=== PATIENT | male | born 1960 ===

== ENCOUNTER 2017-09-13 06:33 | Inpatient (IN) | payer OTHER ==
[2017-09-13] MEDS ORDERED: Sodium Chloride 0.9% 1,000 ML IV ONE ×2 (07:26→09:14)
--- NOTE | 2017-09-13 07:39 | C.PDOC ---
History Of Present Illness 56 y/o male with history of pancreatitis presents to ED with complaints of upper abdominal pain which radiates into chest and back with associated vomiting for 3 days. Patient also has history of drinking alcohol and admits to binge drinking for 3 days and states his last drink was 4 days ago. He also reports dark stools. Patient denies fever, chills, blood in stool, blood in vomitus. Time Seen by Provider: 09/13/17 07:20 Chief Complaint (Nursing): Abdominal Pain History Per: Patient History/Exam Limitations: no limitations Onset/Duration Of Symptoms: Days Current Symptoms Are (Timing): Still Present Location Of Pain/Discomfort: Epigastric Associated Symptoms: Back Pain Past Medical History Reviewed: Historical Data, Nursing Documentation, Vital Signs Vital Signs: Last Vital Signs Temp 98.5 F 09/13/17 09:52 Pulse 87 09/13/17 09:52 Resp 18 09/13/17 09:52 BP 188/82 H 09/13/17 09:52 Pulse Ox 98 09/13/17 10:07 - Medical History PMH: Anxiety Surgical History: No Surg Hx Family History: States: No Known Family Hx - Social History Hx Alcohol Use: Yes Hx Substance Use: No Review Of Systems Constitutional: Negative for: Fever, Chills Respiratory: Negative for: Shortness of Breath Gastrointestinal: Positive for: Abdominal Pain. Negative for: Nausea, Vomiting , Diarrhea, Hematochezia Skin: Negative for: Rash Physical Exam - Physical Exam Appears: Non-toxic, No Acute Distress Skin: Warm, Dry, No Diaphoretic, No Rash Head: Atraumatic, Normacephalic Eye(s): bilateral: Normal Inspection, PERRL, EOMI Nose: Normal Oral Mucosa: Moist Neck: Normal ROM, Supple Cardiovascular: Rhythm Regular, No Murmur Respiratory: Normal Breath Sounds, No Rales, No Rhonchi, No Wheezing Gastrointestinal/Abdominal: Bowel Sounds, Soft, Tenderness (Epigastric), No Mass , Distention (Mildly), No Guarding, No Rebound, No Hernia, No Ascites Back: No CVA Tenderness, No Vertebral Tenderness Extremity: Normal ROM, No Tenderness, Capillary Refill (<2 seconds), No Deformity Neurological/Psych: Oriented x3, Normal Speech Gait: Steady ED Course And Treatment - Laboratory Results Result Diagrams: 09/13/17 07:39 09/13/17 07:39 Lab Interpretation: Abnormal ECG: Interpreted By Me, Viewed By Me ECG Rhythm: Sinus Rhythm ECG Interpretation: No Acute Changes Rate From EC (prolonged QT) O2 Sat by Pulse Oximetry: 98 (RA) Pulse Ox Interpretation: Normal - CT Scan/US CT scan abd/pelvis Other Rad Studies (CT/US): Read By Radiologist, Radiology Report Reviewed CT/US Interpretation: PROCEDURE: CT Abdomen and Pelvis without intravenous contrast. HISTORY: upper abd pain h.o panc. COMPARISON: None. TECHNIQUE: Without contrast.. Contrast Dose: 0. Radiation dose: Total exam DLP = 275.21 mGy-cm. This CT exam was performed using one or more of the following dose reduction techniques: Automated exposure control, adjustment of the mA and/or kV according to patient size, and/or use of iterative reconstruction technique. FINDINGS: LOWER THORAX: Unremarkable. LIVER: Diffusely diminished attenuation consistent with fatty infiltration. Smooth contour. No mass. Normal size. GALLBLADDER AND BILE DUCTS: Unremarkable. PANCREAS: No focal pancreatic mass. Few coarse calcifications. Peripancreatic inflammation/edema consistent with acute pancreatitis. No cielo fluid collection. This is seen about the entire pancreas. SPLEEN: Minimal splenomegaly. The spleen measures 13.1 cm in greatest dimension. No mass. ADRENALS: Unremarkable. No mass. KIDNEYS AND URETERS: Unremarkable. No hydronephrosis. No solid mass. VASCULATURE: Unremarkable. No aortic aneurysm. BOWEL: Diverticulosis of the cecum and ascending colon without evidence of diverticulitis. No other abnormal bowel loops. No bowel obstruction. APPENDIX: Not identified. No secondary findings. PERITONEUM: Unremarkable. No free fluid. No free air. LYMPH NODES: Unremarkable. No enlarged lymph nodes. BLADDER: Suboptimally distended. REPRODUCTIVE: Unremarkable. BONES: No acute fracture. OTHER FINDINGS: None. IMPRESSION: Findings consistent with acute uncomplicated pancreatitis. Few coarse pancreatic calcifications suggestive of chronic pancreatitis. Fatty infiltration of the liver. Minimal splenomegaly. Medical Decision Making Medical Decision Making: Impression: Upper abdominal pain likely pancreatitis Plan: * CT abd/pelvis * Blood work * UA * Zofran Progress: Labs reviewed no leukocytosis. Lab calls back with critical value 10 of Bicarb. Other labs show elevated amylase and lipase >4000. Case discussed with ER attending Dr Holley who recommends ICU consult [address] Vo who will come to evaluate patient and recommends starting 1/2NS 75 meq bicarb 0840 Page hospitalist for admission 0910 ICU accepts Disposition - Disposition Disposition: HOSPITALIZED Disposition Time: 09:10 Condition: STABLE - POA Present On Arrival: None - Clinical Impression Clinical Impression: Pancreatitis - PA / EVENT REPRESENTATIVE / Resident Statement MD/DO has reviewed & agrees with the documentation as recorded. - Scribe Statement The provider has reviewed the documentation as recorded by the Scribe Tess Lora All medical record entries made by the Scribe were at my direction and personally dictated by me. I have reviewed the chart and agree that the record accurately reflects my personal performance of the history, physical exam, medical decision making, and the department course for this patient. I have also personally directed, reviewed, and agree with the discharge instructions and disposition. Decision To Admit - Pt Status Changed To: Hospital Disposition Of: Inpatient - Admit Certification Admit to Inpatient:: After my assessment, the patient will require hospitalization for at least two midnights. This is because of the severity of symptoms shown, intensity of services needed, and/or the medical risk in this patient being treated as an outpatient. - InPatient: Physician Admission Certification:: patient with acute pancreatitis and needs admission and ICU - . Bed Request Type: ICU Admitting Physician: Camila Denney Patient Diagnosis: Pancreatitis
[2017-09-13] MEDS ORDERED: Sodium Chloride 0.9% 1,000 ML ONE (07:43)
[2017-09-13 07:44] LABS: BASO % 0.1 % (0.0-2.0); EOS % 0.5 % (0.0-4.0); HEMOGLOBIN 14.6 g/dL (12.0-18.0); LYMPH # 0.6 K/uL (1.0-4.3); LYMPH % 9.9 % (20.0-40.0); MEAN CELL VOLUME 88.7 fL (80.0-94.0); MEAN CORPUSCULAR HGB CONC 33.8 g/dL (33.0-37.0); MEAN PLATELET VOLUME 8.7 fL (7.2-11.7); MONO # 0.5 K/uL (0.0-0.8); MONO % 9.5 % (0.0-10.0); NEUT # 4.6 K/uL (1.8-7.0); NRBC % 0.1 % (0.0-2.0); PLATELET COUNT 152 K/uL (130-400); RBC 4.85 Mil/uL (4.40-5.90); RED CELL DISTRIBUTION WIDTH 18.4 % (11.5-14.5); WHITE BLOOD COUNT 5.8 K/uL (4.8-10.8)
[2017-09-13 08:06] LABS: LYMPHOCYTE 8 % (20-40); MONOCYTE 7 % (0-10); NEUTROPHIL 85 % (50-75); PLATELET ESTIMATE NORMAL (NORMAL); TOTAL CELLS COUNTED 100
[2017-09-13 08:09] LABS: SQUAMOUS EPITHIAL 1 /hpf (0-5); URINE BACTERIA OCC (<OCC); URINE BILIRUBIN 1+ (NEGATIVE); URINE BLOOD 2+ (NEGATIVE); URINE CLARITY Hazy (Clear); URINE COLOR Amber (YELLOW); URINE GLUCOSE (UA) NORMAL (Normal); URINE LEUKOCYTE ESTERASE NEG Leu/uL (Negative); URINE PROTEIN 3+ mg/dL (NEGATIVE)
[2017-09-13] MEDS ORDERED: Morphine 4 MG/ML VIAL ONE (08:10)
[2017-09-13 08:12] LABS: BARBITURATES, UR NEGATIVE (NEGATIVE); BENZODIAZEPINES, UR NEGATIVE (NEGATIVE); OPIATES, UR NEGATIVE (NEGATIVE); PHENCYCLIDINE, UR NEGATIVE (NEGATIVE); URINE WHITE BLOOD CELL CAST 7 /lpf (0-1)
[2017-09-13 08:29] LABS: ALB/GLOB RATIO 1.1 (1.0-2.1); ALBUMIN 5.3 g/dL (3.5-5.0); ALT/SGPT 108 U/L (21-72); AMYLASE 393 U/L (30-110); AST/SGOT 109 U/L (17-59); BLOOD UREA NITROGEN 22 mg/dL (9-20); GFR AFRICAN-AMERICAN > 60; GFR NON-AFRICAN AMERICAN > 60; LIPASE 4574 U/L (23-300)
--- NOTE | 2017-09-13 09:10 | CT ---
PROCEDURE: CT Abdomen and Pelvis without intravenous contrast HISTORY: upper abd pain h.o panc COMPARISON: None. TECHNIQUE: Without contrast.. Contrast Dose: 0 Radiation dose: Total exam DLP = 275.21 mGy-cm This CT exam was performed using one or more of the following dose reduction techniques: Automated exposure control, adjustment of the mA and/or kV according to patient size, and/or use of iterative reconstruction technique. FINDINGS: LOWER THORAX: Unremarkable. LIVER: Diffusely diminished attenuation consistent with fatty infiltration. Smooth contour. No mass. Normal size. GALLBLADDER AND BILE DUCTS: Unremarkable. PANCREAS: No focal pancreatic mass. Few coarse calcifications. Peripancreatic inflammation/edema consistent with acute pancreatitis. No cielo fluid collection. This is seen about the entire pancreas. SPLEEN: Minimal splenomegaly. The spleen measures 13.1 cm in greatest dimension. No mass. ADRENALS: Unremarkable. No mass. KIDNEYS AND URETERS: Unremarkable. No hydronephrosis. No solid mass. VASCULATURE: Unremarkable. No aortic aneurysm. BOWEL: Diverticulosis of the cecum and ascending colon without evidence of diverticulitis. No other abnormal bowel loops. No bowel obstruction. APPENDIX: Not identified. No secondary findings. PERITONEUM: Unremarkable. No free fluid. No free air. LYMPH NODES: Unremarkable. No enlarged lymph nodes. BLADDER: Suboptimally distended. REPRODUCTIVE: Unremarkable. BONES: No acute fracture. OTHER FINDINGS: None. IMPRESSION: Findings consistent with acute uncomplicated pancreatitis. Few coarse pancreatic calcifications suggestive of chronic pancreatitis. Fatty infiltration of the liver. Minimal splenomegaly.
[2017-09-13 09:23] LABS: VENOUS BLOOD GAS BASE EXCESS -11.3 mmol/L (0.0-2.0); VENOUS BLOOD GAS PCO2 37 mmHg (40-60); VENOUS BLOOD GAS PO2 39 mm/Hg (30-55); VENOUS BLOOD PH 7.23 (7.32-7.43)
[2017-09-13 09:30] LABS: PROTHROMBIN TIME 10.8 SECONDS (9.7-12.2)
[2017-09-13 10:12] LABS: ARTERIAL BLOOD GAS HCO3 13.4 mmol/L (21-28); ARTERIAL BLOOD GAS HEMOGLOBIN 10.3 g/dL (11.7-17.4); ARTERIAL BLOOD GAS O2 SAT 99.3 % (95-98); ARTERIAL BLOOD GAS PCO2 26 mm/Hg (35-45); ARTERIAL BLOOD GAS PH 7.24 (7.35-7.45); ARTERIAL BLOOD GAS PO2 102 mm/Hg (80-100); ARTERIAL BLOOD GAS TCO2 11.9 mmol/L (22-28)
--- NOTE | 2017-09-13 10:25 | CP.PCM.CON ---
"<Eldon Grissom - Last Filed: 09/13/17 13:15> History of Present Illness - History of Present Illness History of Present Illness: This Patient is a 56 year old male with a PMHx of alcoholic pancreatitis, EtOh Abuse/Withdrawal and delerium tremens w/ audio hallucinatoins who presents with complaints of abdominal pain and associated nausea and vomiting x 3 days. Patient rates the abdominal pain a 10/10, describes it as sharp and states that it radiates to his mid back. Patient states he was drinking a bottle of vodka daily for 4 days and stopped 3 days ago. He has not had anything to eat for 7 days. He denies using any modalities to treat his pain. ROS POSITIVES: Abdominal Pain, back pain, Tremor, Generalized Weakness, Melena, nausea, non-bloody/non-bilious vomiting. NEGATIVES: Fever, chills, chest pain, SOB, urinary symptoms, diarrhea, constipation, Depression, Anxiety, Suicidal/Homicidal Ideation, Audio/visual/ tactile hallucinations. PMHx: As stated above PSHx: Denies Allergies: Denies Social Hx: EtOH ABuse, Denies tobacco and illicit drug use. Unemployed and lives in [place]. Hos: was hospitilized in [facility] for EtOH withdrawal and delerium tremens FamHx: Non-Contributory Meds: Reviewed Review of Systems - Review of Systems All systems: reviewed and no additional remarkable complaints except (As per HPI ) Review of Systems: As per HPI Past Patient History - Past Social History Smoking Status: Never Smoked - PSYCHIATRIC Hx Anxiety: Yes Hx Substance Use: No - SURGICAL HISTORY Hx Surgeries: No Meds Allergies/Adverse Reactions: Allergies Allergy/AdvReac Type Severity Reaction Status Date / Time No Known Allergies Allergy Verified 09/13/17 06:36 - Medications Medications: Current Medications Sodium Bicarbonate 75 meq/ (Sodium Chloride) 1,075 mls @ 200 mls/hr IV .[id number] [facility] Last Admin: 09/13/17 09:17 Dose: 200 mls/hr Physical Exam - Additional Findings Additional findings: - Constitutional Appears: Non-toxic, Unkempt - Head Exam Head Exam: ATRAUMATIC, NORMAL INSPECTION, NORMOCEPHALIC - Eye Exam Eye Exam: EOMI, PERRL - ENT Exam ENT Exam: Mucous Membranes Dry - Neck Exam Neck exam: Positive for: Normal Inspection. Negative for: Lymphadenopathy - Respiratory Exam Respiratory Exam: Clear to Auscultation Bilateral, NORMAL BREATHING PATTERN. absent: Accessory Muscle Use - Cardiovascular Exam Cardiovascular Exam: Tachycardia, REGULAR RHYTHM, +S1, +S2. absent: JVD - GI/Abdominal Exam GI & Abdominal Exam: Normal Bowel Sounds, Tenderness (Epigastric, RUQ, LUQ ). absent: Distended, Firm, Guarding, Organomegaly - Extremities Exam Extremities exam: Positive for: normal inspection. Negative for: pedal edema - Neurological Exam Neurological exam: Alert, Oriented x3 - Psychiatric Exam Psychiatric exam: Normal Affect, Normal Mood - Skin Skin Exam: Dry, Intact, Normal Color, Warm Results - Vital Signs Recent Vital Signs: Last Vital Signs Temp 98.5 F 09/13/17 09:52 Pulse 87 09/13/17 09:52 Resp 18 09/13/17 09:52 BP 188/82 H 09/13/17 09:52 Pulse Ox 98 09/13/17 10:07 - Labs Result Diagrams: 09/13/17 07:39 09/13/17 07:39 Labs: Laboratory Results - last 24 hr 09/13/17 09/13/17 09/13/17 07:39 07:39 07:39 WBC 5.8 RBC 4.85 Hgb 14.6 Hct 43.0 MCV 88.7 MCH 30.0 MCHC 33.8 RDW 18.4 H Plt Count 152 MPV 8.7 Neut % (Auto) 80.0 H Lymph % (Auto) 9.9 L [place] % (Auto) 9.5 Eos % (Auto) 0.5 Baso % (Auto) 0.1 Neut # (Auto) 4.6 Lymph # (Auto) 0.6 L [place] # (Auto) 0.5 Eos # (Auto) 0.0 Baso # (Auto) 0.0 Neutrophils % (Manual) 85 H Lymphocytes % (Manual) 8 L Monocytes % (Manual) 7 Platelet Estimate Normal PT INR APTT Puncture Site pCO2 pO2 HCO3 ABG pH ABG Total CO2 ABG O2 Saturation ABG Base Excess ABG Hemoglobin ABG Carboxyhemoglobin POC ABG HHb (Measured) ABG Methemoglobin Ravin Test VBG pH VBG pCO2 VBG HCO3 VBG Total CO2 VBG O2 Sat (Calc) VBG Base Excess VBG Potassium A-a O2 Difference Respiratory Index Hgb O2 Saturation Glucose Lactate FiO2 Sodium 139 Potassium 4.7 Chloride 98 Carbon Dioxide 10 L* Anion Gap 36 H BUN 22 H Creatinine 1.2 Est GFR ( Amer) > 60 Est GFR (Non-Af Amer) > 60 Random Glucose 114 H Calcium 10.0 Magnesium Total Bilirubin 1.6 H AST 109 H ALT 108 H Alkaline Phosphatase 105 Lactate Dehydrogenase Total Protein 10.0 H Albumin 5.3 H Globulin 4.6 H Albumin/Globulin Ratio 1.1 Amylase 393 H Lipase 4574 H Venous Blood Potassium Urine Color Sayda Urine Clarity Hazy Urine pH 5.0 Ur Specific [place] 1.027 Urine Protein 3+ H Urine Glucose (UA) Normal Urine Ketones 2+ H Urine Blood 2+ H Urine Nitrate Negative Urine Bilirubin 1+ H Urine Urobilinogen 4.0 Ur Leukocyte Esterase Neg Urine WBC (Auto) 20 H Urine RBC (Auto) 31 H Ur Squamous Epith Cells 1 Urine Bacteria Occ H Hyaline Casts 11-20 H WBC Casts 7 Urine Opiates Screen Urine Methadone Screen Ur Barbiturates Screen Ur Phencyclidine Scrn Ur Amphetamines Screen U Benzodiazepines Scrn U Oth Cocaine Metabols U Cannabinoids Screen Alcohol, Quantitative < 10 09/13/17 09/13/17 09/13/17 07:39 09:11 09:18 WBC RBC Hgb Hct MCV MCH MCHC RDW Plt Count MPV Neut % (Auto) Lymph % (Auto) [place] % (Auto) Eos % (Auto) Baso % (Auto) Neut # (Auto) Lymph # (Auto) [place] # (Auto) Eos # (Auto) Baso # (Auto) Neutrophils % (Manual) Lymphocytes % (Manual) Monocytes % (Manual) Platelet Estimate PT 10.8 INR 1.0 APTT 24 Puncture Site pCO2 pO2 39 HCO3 ABG pH ABG Total CO2 ABG O2 Saturation ABG Base Excess ABG Hemoglobin ABG Carboxyhemoglobin POC ABG HHb (Measured) ABG Methemoglobin Ravin Test VBG pH 7.23 L VBG pCO2 37 L VBG HCO3 15.1 VBG Total CO2 16.6 L VBG O2 Sat (Calc) 72.7 H VBG Base Excess -11.3 L VBG Potassium 4.3 A-a O2 Difference Respiratory Index Hgb O2 Saturation Glucose 99 Lactate 0.9 FiO2 Sodium 135.0 Potassium Chloride 100.0 Carbon Dioxide Anion Gap BUN Creatinine Est GFR ( Amer) Est GFR (Non-Af Amer) Random Glucose Calcium Magnesium Total Bilirubin AST ALT Alkaline Phosphatase Lactate Dehydrogenase Total Protein Albumin Globulin Albumin/Globulin Ratio Amylase Lipase Venous Blood Potassium 4.3 Urine Color Urine Clarity Urine pH Ur Specific [place] Urine Protein Urine Glucose (UA) Urine Ketones Urine Blood Urine Nitrate Urine Bilirubin Urine Urobilinogen Ur Leukocyte Esterase Urine WBC (Auto) Urine RBC (Auto) Ur Squamous Epith Cells Urine Bacteria Hyaline Casts WBC Casts Urine Opiates Screen Negative Urine Methadone Screen Negative Ur Barbiturates Screen Negative Ur Phencyclidine Scrn Negative Ur Amphetamines Screen Negative U Benzodiazepines Scrn Negative U Oth Cocaine Metabols Negative U Cannabinoids Screen Negative Alcohol, Quantitative 09/13/17 09/13/17 09:27 10:05 WBC RBC Hgb Hct MCV MCH MCHC RDW Plt Count MPV Neut % (Auto) Lymph % (Auto) [place] % (Auto) Eos % (Auto) Baso % (Auto) Neut # (Auto) Lymph # (Auto) [place] # (Auto) Eos # (Auto) Baso # (Auto) Neutrophils % (Manual) Lymphocytes % (Manual) Monocytes % (Manual) Platelet Estimate PT INR APTT Puncture Site Lb pCO2 26 L pO2 102 H HCO3 13.4 L ABG pH 7.24 L ABG Total CO2 11.9 L ABG O2 Saturation 99.3 H ABG Base Excess -14.8 L ABG Hemoglobin 10.3 L ABG Carboxyhemoglobin 2.1 H POC ABG HHb (Measured) 0.7 ABG Methemoglobin 1.8 Ravin Test Na VBG pH VBG pCO2 VBG HCO3 VBG Total CO2 VBG O2 Sat (Calc) VBG Base Excess VBG Potassium A-a O2 Difference 15.0 Respiratory Index 0.1 Hgb O2 Saturation 95.4 Glucose Lactate FiO2 21.0 Sodium Potassium Chloride Carbon Dioxide Anion Gap BUN Creatinine Est GFR ( Amer) Est GFR (Non-Af Amer) Random Glucose Calcium Magnesium 1.7 Total Bilirubin AST ALT Alkaline Phosphatase Lactate Dehydrogenase 505 Total Protein Albumin Globulin Albumin/Globulin Ratio Amylase Lipase Venous Blood Potassium Urine Color Urine Clarity Urine pH Ur Specific [place] Urine Protein Urine Glucose (UA) Urine Ketones Urine Blood Urine Nitrate Urine Bilirubin Urine Urobilinogen Ur Leukocyte Esterase Urine WBC (Auto) Urine RBC (Auto) Ur Squamous Epith Cells Urine Bacteria Hyaline Casts WBC Casts Urine Opiates Screen Urine Methadone Screen Ur Barbiturates Screen Ur Phencyclidine Scrn Ur Amphetamines Screen U Benzodiazepines Scrn U Oth Cocaine Metabols U Cannabinoids Screen Alcohol, Quantitative Assessment & Plan - Assessment and Plan (Free Text) Assessment: 56 year old male with a PMHx of alcoholic pancreatitis, EtOh Abuse/Withdrawal and delerium tremens w/ audio hallucinations admitted for evaluation and treatment of EtOH Withdrawal, Alcoholic KetoAcidosis, and pancratitis. Plan: Neuro: GCS: 15 Sedation: None A: EtoH Withdrawal CIWA, Neurochecks, Seizure precautions, Fall Precautions Zofran PRN Folic Acid, Thiamine, MultiVitamins IV Daily Ativan 1 Q4H DENIS | Ativan 2 Q6H PRN PT Cardio: A: Elevated BP EKG: NSR w/ prolonged QT. No ST or T wave changes PRN Hydralazine GI: A: Pancreatitis, Elevated LFT's 2/2 EtoH ABuse, Elevated Billirubin 1/2 NS with Sodium Bicarb (75 MeQ) @ 200mls/hr NPO Hepatitis [employer] LFT's Morphine Q4 PRN Pulm: A: No Active Issues Nephro/Electrolytes A: Alcoholic Ketoacidosis 1/2 NS with Sodium Bicarb (75 MeQ) @ 200mls/hr Heme/Onc: No Active Issues at this time Endo: No Active Issues at this time ID Afebrile no Leukocytosis Proph IV protonix SCDs NPO Patient seen and discussed with Attending Eldon Grissom, PGY-1 <Bry Vo - Last Filed: 09/13/17 17:30> Meds - Medications Medications: Current Medications Acetaminophen (Tylenol 325mg Tab) 650 mg PO Q6 PRN PRN Reason: Fever >100.4 F Clonidine HCl (Catapres) 0.2 mg PO BID [facility] Last Admin: 09/13/17 14:58 Dose: 0.2 mg Hydralazine HCl (Apresoline) 10 mg IVP Q6H PRN PRN Reason: SBP > 180 or DBP > 100 Last Admin: 09/13/17 13:42 Dose: 10 mg Sodium Bicarbonate 75 meq/ (Sodium Chloride) 1,075 mls @ 200 mls/hr IV .[id number] [facility] Last Admin: 09/13/17 14:41 Dose: 200 mls/hr Folic Acid 1 mg/ Sodium (Chloride) 100.2 mls @ 60 mls/hr IV DAILY [facility] Last Admin: 09/13/17 13:29 Dose: 60 mls/hr Lorazepam (Ativan) 2 mg IVP Q6H PRN PRN Reason: Agitation Lorazepam (Ativan) 1 mg IVP Q4H [facility] Last Admin: 09/13/17 13:11 Dose: 1 mg Morphine Sulfate (Morphine) 4 mg IVP Q4 PRN PRN Reason: Pain, moderate (4-7) Last Admin: 09/13/17 12:17 Dose: 4 mg Ondansetron HCl (Zofran Inj) 4 mg IVP Q4H PRN PRN Reason: Nausea/Vomiting Pantoprazole Sodium (Protonix Inj) 40 mg IVP DAILY [facility] Thiamine HCl (Vitamin B1 Inj) 100 mg IV DAILY [facility] Last Admin: 09/13/17 13:31 Dose: 100 mg Results - Vital Signs Recent Vital Signs: Last Vital Signs Temp 98.5 F 09/13/17 09:52 Pulse 88 09/13/17 15:00 Resp 18 09/13/17 15:00 BP 178/95 H 09/13/17 15:00 Pulse Ox 100 09/13/17 15:00 - Labs Result Diagrams: 09/13/17 07:39 09/13/17 07:39 Labs: Laboratory Results - last 24 hr 09/13/17 09/13/17 09/13/17 07:39 07:39 07:39 WBC 5.8 RBC 4.85 Hgb 14.6 Hct 43.0 MCV 88.7 MCH 30.0 MCHC 33.8 RDW 18.4 H Plt Count 152 MPV 8.7 Neut % (Auto) 80.0 H Lymph % (Auto) 9.9 L [place] % (Auto) 9.5 Eos % (Auto) 0.5 Baso % (Auto) 0.1 Neut # (Auto) 4.6 Lymph # (Auto) 0.6 L [place] # (Auto) 0.5 Eos # (Auto) 0.0 Baso # (Auto) 0.0 Neutrophils % (Manual) 85 H Lymphocytes % (Manual) 8 L Monocytes % (Manual) 7 Platelet Estimate Normal PT INR APTT Puncture Site pCO2 pO2 HCO3 ABG pH ABG Total CO2 ABG O2 Saturation ABG Base Excess ABG Hemoglobin ABG Carboxyhemoglobin POC ABG HHb (Measured) ABG Methemoglobin Ravin Test VBG pH VBG pCO2 VBG HCO3 VBG Total CO2 VBG O2 Sat (Calc) VBG Base Excess VBG Potassium A-a O2 Difference Respiratory Index Hgb O2 Saturation Glucose Lactate FiO2 Sodium 139 Potassium 4.7 Chloride 98 Carbon Dioxide 10 L* Anion Gap 36 H BUN 22 H Creatinine 1.2 Est GFR ( Amer) > 60 Est GFR (Non-Af Amer) > 60 Random Glucose 114 H Calcium 10.0 Magnesium Total Bilirubin 1.6 H AST 109 H ALT 108 H Alkaline Phosphatase 105 Lactate Dehydrogenase Total Protein 10.0 H Albumin 5.3 H Globulin 4.6 H Albumin/Globulin Ratio 1.1 Amylase 393 H Lipase 4574 H Venous Blood Potassium Urine Color Sayda Urine Clarity Hazy Urine pH 5.0 Ur Specific [place] 1.027 Urine Protein 3+ H Urine Glucose (UA) Normal Urine Ketones 2+ H Urine Blood 2+ H Urine Nitrate Negative Urine Bilirubin 1+ H Urine Urobilinogen 4.0 Ur Leukocyte Esterase Neg Urine WBC (Auto) 20 H Urine RBC (Auto) 31 H Ur Squamous Epith Cells 1 Urine Bacteria Occ H Hyaline Casts 11-20 H WBC Casts 7 Urine Opiates Screen Urine Methadone Screen Ur Barbiturates Screen Ur Phencyclidine Scrn Ur Amphetamines Screen U Benzodiazepines Scrn U Oth Cocaine Metabols U Cannabinoids Screen Alcohol, Quantitative < 10 09/13/17 09/13/17 09/13/17 07:39 09:11 09:18 WBC RBC Hgb Hct MCV MCH MCHC RDW Plt Count MPV Neut % (Auto) Lymph % (Auto) [place] % (Auto) Eos % (Auto) Baso % (Auto) Neut # (Auto) Lymph # (Auto) [place] # (Auto) Eos # (Auto) Baso # (Auto) Neutrophils % (Manual) Lymphocytes % (Manual) Monocytes % (Manual) Platelet Estimate PT 10.8 INR 1.0 APTT 24 Puncture Site pCO2 pO2 39 HCO3 ABG pH ABG Total CO2 ABG O2 Saturation ABG Base Excess ABG Hemoglobin ABG Carboxyhemoglobin POC ABG HHb (Measured) ABG Methemoglobin Ravin Test VBG pH 7.23 L VBG pCO2 37 L VBG HCO3 15.1 VBG Total CO2 16.6 L VBG O2 Sat (Calc) 72.7 H VBG Base Excess -11.3 L VBG Potassium 4.3 A-a O2 Difference Respiratory Index Hgb O2 Saturation Glucose 99 Lactate 0.9 FiO2 Sodium 135.0 Potassium Chloride 100.0 Carbon Dioxide Anion Gap BUN Creatinine Est GFR ( Amer) Est GFR (Non-Af Amer) Random Glucose Calcium Magnesium Total Bilirubin AST ALT Alkaline Phosphatase Lactate Dehydrogenase Total Protein Albumin Globulin Albumin/Globulin Ratio Amylase Lipase Venous Blood Potassium 4.3 Urine Color Urine Clarity Urine pH Ur Specific [place] Urine Protein Urine Glucose (UA) Urine Ketones Urine Blood Urine Nitrate Urine Bilirubin Urine Urobilinogen Ur Leukocyte Esterase Urine WBC (Auto) Urine RBC (Auto) Ur Squamous Epith Cells Urine Bacteria Hyaline Casts WBC Casts Urine Opiates Screen Negative Urine Methadone Screen Negative Ur Barbiturates Screen Negative Ur Phencyclidine Scrn Negative Ur Amphetamines Screen Negative U Benzodiazepines Scrn Negative U Oth Cocaine Metabols Negative U Cannabinoids Screen Negative Alcohol, Quantitative 09/13/17 09/13/17 09:27 10:05 WBC RBC Hgb Hct MCV MCH MCHC RDW Plt Count MPV Neut % (Auto) Lymph % (Auto) [place] % (Auto) Eos % (Auto) Baso % (Auto) Neut # (Auto) Lymph # (Auto) [place] # (Auto) Eos # (Auto) Baso # (Auto) Neutrophils % (Manual) Lymphocytes % (Manual) Monocytes % (Manual) Platelet Estimate PT INR APTT Puncture Site Lb pCO2 26 L pO2 102 H HCO3 13.4 L ABG pH 7.24 L ABG Total CO2 11.9 L ABG O2 Saturation 99.3 H ABG Base Excess -14.8 L ABG Hemoglobin 10.3 L ABG Carboxyhemoglobin 2.1 H POC ABG HHb (Measured) 0.7 ABG Methemoglobin 1.8 Ravin Test Na VBG pH VBG pCO2 VBG HCO3 VBG Total CO2 VBG O2 Sat (Calc) VBG Base Excess VBG Potassium A-a O2 Difference 15.0 Respiratory Index 0.1 Hgb O2 Saturation 95.4 Glucose Lactate FiO2 21.0 Sodium Potassium Chloride Carbon Dioxide Anion Gap BUN Creatinine Est GFR ( Amer) Est GFR (Non-Af Amer) Random Glucose Calcium Magnesium 1.7 Total Bilirubin AST ALT Alkaline Phosphatase Lactate Dehydrogenase 505 Total Protein Albumin Globulin Albumin/Globulin Ratio Amylase Lipase Venous Blood Potassium Urine Color Urine Clarity Urine pH Ur Specific [place] Urine Protein Urine Glucose (UA) Urine Ketones Urine Blood Urine Nitrate Urine Bilirubin Urine Urobilinogen Ur Leukocyte Esterase Urine WBC (Auto) Urine RBC (Auto) Ur Squamous Epith Cells Urine Bacteria Hyaline Casts WBC Casts Urine Opiates Screen Urine Methadone Screen Ur Barbiturates Screen Ur Phencyclidine Scrn Ur Amphetamines Screen U Benzodiazepines Scrn U Oth Cocaine Metabols U Cannabinoids Screen Alcohol, Quantitative Attending/Attestation - Attestation I have personally seen and examined this patient.: Yes I have fully participated in the care of the patient.: Yes I have reviewed all pertinent clinical information: Yes Notes (Text): 09/13/17 17:26 I have seen and examined the patient. Medical records, lab studies, and imaging were reviewed by me and a management plan was formulated on multidisciplinary rounds with resident Dr. Grissom. I agree with their documented assessment and plan. Patient presented with alcoholic ketoacidosis. Started on bicarb drip. Alcohol induced pancreatitis, NPO. Alcohol withdrawal, CIWA and Ativan prn. Critical Care Time 35 minutes. Multi-disciplinary rounds were performed with house staff, nursing, speech therapy, respiratory therapy, pharmacy and nutrition with integrated input from the primary team/attending and other consulting services. The documented time is cumulative and includes review of patient data/exams/labs/chart review and examination of the patient on rounds and throughout the day; time is exclusive of any procedures or teaching time."
[2017-09-13] MEDS: Morphine 4 MG/ML VIAL IVP PRN (12:17)
[2017-09-13] MEDS: Thiamine 100 mg/ml Inj IV SCH (13:31)
[2017-09-13 18:47] LABS: BLOOD UREA NITROGEN 15 mg/dL (9-20); CALCIUM 9.1 mg/dl (8.6-10.4); GFR AFRICAN-AMERICAN > 60; GFR NON-AFRICAN AMERICAN > 60
[2017-09-14] MEDS: Morphine 4 MG/ML VIAL IVP PRN ×2 (01:57→20:47)
[2017-09-14 06:25] LABS: BASO % 0.4 % (0.0-2.0); EOS # 0.1 K/uL (0.0-0.7); EOS % 1.7 % (0.0-4.0); LYMPH # 0.9 K/uL (1.0-4.3); LYMPH % 24.7 % (20.0-40.0); MEAN CELL VOLUME 86.4 fL (80.0-94.0); MEAN CORPUSCULAR HEMOGLOBIN 29.9 pg (27.0-31.0); MEAN CORPUSCULAR HGB CONC 34.5 g/dL (33.0-37.0); MEAN PLATELET VOLUME 8.2 fL (7.2-11.7); MONO # 0.2 K/uL (0.0-0.8); MONO % 6.6 % (0.0-10.0); NEUT # 2.5 K/uL (1.8-7.0); NEUT % 66.6 % (50.0-75.0); NRBC % 0.1 % (0.0-2.0); RBC 4.01 Mil/uL (4.40-5.90); RED CELL DISTRIBUTION WIDTH 18.5 % (11.5-14.5); WHITE BLOOD COUNT 3.8 K/uL (4.8-10.8)
[2017-09-14 06:43] LABS: ALB/GLOB RATIO 1.4 (1.0-2.1); ALBUMIN 4.4 g/dL (3.5-5.0); ALT/SGPT 74 U/L (21-72); AST/SGOT 69 U/L (17-59); BLOOD UREA NITROGEN 9 mg/dL (9-20); CALCIUM 8.9 mg/dl (8.6-10.4); GFR AFRICAN-AMERICAN > 60; GFR NON-AFRICAN AMERICAN > 60; LIPASE 633 U/L (23-300)
[2017-09-14 07:12] LABS: HEPATITIS B SURFACE AG Negative (NEGATIVE)
[2017-09-14 07:18] LABS: HEPATITIS A IGM NEGATIVE (NEGATIVE); HEPATITIS B CORE AB NEGATIVE (NEGATIVE)
[2017-09-14 07:30] LABS: HEPATITIS C ANTIBODY NEGATIVE (NEGATIVE)
--- NOTE | 2017-09-14 09:40 | PCM.PSYCH ---
Initial Psychiatric Evaluation - Initial Psychiatric Evaluation Type of Admission: Voluntary Legal Status: Capacity Chief Complaint (in patient's own words): "Alcohol" History of Present Illness and Precipitating Events: The pt is seen, chart reviewed, case discussed Consult was asked for his alcohol consumption, withdrawal This is a 56 yo LM, , no child, unemployed, lives with a room mate. He drinks more than a pint a day since age 14 Denies drugs and cigarette No previous detox or treatment, no AA He feels depressed and sometimes hears voices (on withdrawal) Past psych hx: Denies Medical hx: Denies Family psych hx: Denies Current Medications: Active Medications Generic Name Dose Route Start Last Admin Trade Name Freq PRN Reason Stop Dose Admin Acetaminophen 650 mg 09/13/17 12:57 Tylenol 325mg Tab PO Q6 PRN Fever >100.4 F Clonidine HCl 0.2 mg 09/13/17 15:00 09/13/17 18:06 Catapres PO Not Given BID DENIS Folic Acid 1 mg/ Sodium 100.2 mls @ 60 mls/hr 09/13/17 11:45 09/13/17 13:29 Chloride IV 60 mls/hr DAILY DENIS Administration Sodium Bicarbonate 75 meq/ 1,075 mls @ 100 mls/hr 09/13/17 22:15 09/13/17 22: 15 Sodium Chloride IV 100 mls/hr .[id number] DENIS Administration Potassium Chloride 10 meq in 100 mls @ 100 mls/hr 09/14/17 10:00 Potassium Chloride 10 Meq/100 Ml IVPB 09/14/17 12:59 Q2 DENIS Magnesium Sulfate/Dextrose 1 gm in 100 mls @ 100 mls/hr 09/14/17 10:00 Magnesium Sulfate 1 Gm/100 Ml D5w IVPB 09/14/17 11:59 Q1H DENIS Lorazepam 2 mg 09/13/17 11:29 Ativan IVP Q6H PRN Agitation Lorazepam 1 mg 09/13/17 11:45 09/14/17 03:50 Ativan IVP 1 mg Q4H DENIS Administration Morphine Sulfate 4 mg 09/13/17 11:25 09/14/17 01:57 Morphine IVP 4 mg Q4 PRN Administration Pain, moderate (4-7) Ondansetron HCl 4 mg 09/13/17 11:32 Zofran Inj IVP Q4H PRN Nausea/Vomiting Pantoprazole Sodium 40 mg 09/14/17 10:00 Protonix Inj IVP DAILY DENIS Thiamine HCl 100 mg 09/13/17 11:45 09/13/17 13:31 Vitamin B1 Inj IV 100 mg DAILY [facility]IS Administration Past Psychiatric History - Past Psychiatric History Previous Treatment History: None Pertinent Medical Hx (Current Medical&Sleep Prob, Allergies): Allergies Allergy/AdvReac Type Severity Reaction Status Date / Time No Known Allergies Allergy Verified 09/13/17 06:36 Escitalopram [Lexapro] 20 mg PO DAILY 09/13/17 Lorazepam [Ativan] 0.5 mg PO BID 09/13/17 Mirtazapine 45 mg PO HS 09/13/17 Quetiapine Fumarate [Seroquel] 50 mg PO HS 09/13/17 Review of Systems - Neurological Neurological: Tremor - Psychiatric Psychiatric: Abnormal Sleep Pattern, Anxiety, Change in Appetite, Difficulty Concentrating. absent: Hallucinations, Homicidal Ideation, Suicidal Ideation Mental Status Examination - Personal Presentation Personal Presentation: Looks older than stated age (unkempt) - Affect Affect: Constricted - Motor Activity Motor Activity: Calm - Reliability in Providing Information Reliability in Providing Information: Fair - Speech Speech: Organized - Mood Mood: Depressed, Anxious - Formal Thought Process Formal Thought Process: No Impairment - Cognitive Functions Orientation: Person, Place, Situation, Time Sensorium: Alert Attention/Concentration: Attentive Estimate of Intelligence: Average Judgement: Intact, as evidence by: Insight regarding need for hospitalization Memory: Recent intact, as evidence by: Ability to recall events of the day, Remote impaired as evidenced by: Inability to recall historical events - Risk Risk: Withdrawal, Diminished functioning - Strength & Assets Inventory Strength & Assets Inventory: Cooperative - Limitations Limitations: Living alone DSM 5 DX - DSM 5 DSM 5 Diagnosis: Alcohol withdrawal with complication Alcohol use d/o - severe Depressive d/o - unspecified - Recommended/Plan of Treatment Treatment Recommendations and Plan of Treatment: Librium detox + as needed extra librium/ativan As needed medications Gabapentin for augmentation if needed All risks, benefits and alternatives of medications, including no medications, discussed and the patient understood and agreed. Supportive therapy and psychoeducation [place] for abstinence Refer to rehab or IOP Attend self-help groups as well Psych will sign off 34 min
[2017-09-14] MEDS: Magnesium Sulfate 1 gm in D5W 1 GM/100 ML BAG IVPB SCH ×2 (10:11→11:20)
[2017-09-14] MEDS: Thiamine 100 mg/ml Inj IV SCH (10:28)
--- NOTE | 2017-09-14 13:59 | CP.PCM.PN ---
Subjective - Date & Time of Evaluation Date of Evaluation: 09/14/17 Time of Evaluation: 09:00 - Subjective Subjective: Seen and examined,pain is less,lying comfortable,no palpitation,no agitation Objective - Vital Signs/Intake and Output Vital Signs (last 24 hours): Temp Pulse Resp BP Pulse Ox 98 F 106 H 22 135/83 98 09/14/17 06:00 09/14/17 11:00 09/14/17 11:00 09/14/17 11:00 09/14/17 11:00 Intake and Output: 09/14/17 09/14/17 06:59 18:59 Intake Total 1500 1680 Output Total 1500 500 Balance 0 1180 - Medications Medications: Current Medications Acetaminophen (Tylenol 325mg Tab) 650 mg PO Q6 PRN PRN Reason: Fever >100.4 F Last Admin: 09/14/17 10:12 Dose: 650 mg Clonidine HCl (Catapres) 0.2 mg PO BID [facility] Last Admin: 09/14/17 10:25 Dose: 0.2 mg Folic Acid 1 mg/ Sodium (Chloride) 100.2 mls @ 60 mls/hr IV DAILY [facility] Last Admin: 09/14/17 10:25 Dose: 60 mls/hr Sodium Bicarbonate 75 meq/ (Sodium Chloride) 1,075 mls @ 100 mls/hr IV .[id number] [facility] Last Admin: 09/14/17 09:30 Dose: 100 mls/hr Lorazepam (Ativan) 2 mg IVP Q6H PRN PRN Reason: Agitation Lorazepam (Ativan) 1 mg IVP Q4H [facility] Last Admin: 09/14/17 10:06 Dose: Not Given Morphine Sulfate (Morphine) 4 mg IVP Q4 PRN PRN Reason: Pain, moderate (4-7) Last Admin: 09/14/17 01:57 Dose: 4 mg Ondansetron HCl (Zofran Inj) 4 mg IVP Q4H PRN PRN Reason: Nausea/Vomiting Pantoprazole Sodium (Protonix Inj) 40 mg IVP DAILY [facility] Last Admin: 09/14/17 10:14 Dose: 40 mg Thiamine HCl (Vitamin B1 Inj) 100 mg IV DAILY [facility] Last Admin: 09/14/17 10:28 Dose: 100 mg - Labs Labs: 09/14/17 06:22 09/14/17 06:22 PT 10.8 SECONDS (9.7-12.2) 09/13/17 09:11 INR 1.0 09/13/17 09:11 APTT 24 SECONDS (21-34) 09/13/17 09:11 - Constitutional Appears: Non-toxic - Head Exam Head Exam: NORMAL INSPECTION - Eye Exam Eye Exam: Normal appearance - ENT Exam ENT Exam: Mucous Membranes Moist - Neck Exam Neck Exam: Full ROM - Respiratory Exam Respiratory Exam: Clear to Ausculation Bilateral, NORMAL BREATHING PATTERN - Cardiovascular Exam Cardiovascular Exam: REGULAR RHYTHM - GI/Abdominal Exam GI & Abdominal Exam: Soft, Normal Bowel Sounds - Extremities Exam Extremities Exam: Full ROM - Back Exam Back Exam: NORMAL INSPECTION - Neurological Exam Neurological Exam: Awake, Oriented x3 - Psychiatric Exam Psychiatric exam: Normal Mood - Skin Skin Exam: Dry Assessment and Plan - Assessment and Plan (Free Text) Assessment: This is a 56 year old male with a PMHx of alcoholic pancreatitis, EtOh Abuse/ Withdrawal and delerium tremens w/ audio hallucinatoins who presents with complaints of abdominal pain and associated nausea and vomiting x 3 days. He was admitted for acute pancreatitis Plan: 1. Acute Pancreatitis pain is better,lipase is improving start on clear liquid diet today CT shows uncomplicated pancreatitis,fatty liver,normal GB and ducts 2. EtoH Withdrawal CIWA, Neurochecks, Seizure precautions, Fall Precautions Zofran PRN Folic Acid, Thiamine,Ativan as needed 3.Alcoholic Ketoacidosis Resolved 4.Prophylaxis DVT and GI
[2017-09-14] MEDS: Dextrose 5%/Lactated Ringer's 1,000 ML IV SCH ×2 (19:02→20:46)
--- NOTE | 2017-09-14 20:08 | CP.CCUPN ---
CCU Subjective - Physician Review Events Since Last Encounter (Free Text): 09/14/17 20:07 Patient is a 56-year-old male with a history of alcoholic pancreatitis, admitted to the hospital with the delirium tremens, and the acute pancreatitis. Patient is today more better. Less abdominal pain. Denies any nausea vomiting, he is feeling hungry at this time. CCU Objective - Vital Signs / Intake & Output Vital Signs (Last 4 hours): Vital Signs Pulse Resp BP Pulse Ox 09/14/17 18:00 91 H 17 98/48 L 97 09/14/17 17:00 87 15 131/72 97 Intake and Output (Last 8hrs): Intake & Output 09/14/17 09/14/17 09/14/17 06:59 14:59 22:59 Intake Total 800 4460 1140 Output Total 1150 1750 700 Balance -350 2710 440 Weight 139 lb 0.3 oz Intake: Intake, IV Amount 800 1300 300 Left Hand 800 1300 300 Oral 3160 840 Output: Urine 1150 1750 700 Urine, Voided 1150 1750 700 Other: # Voids Urine, Voided 1 # Bowel Movements 0 0 - Physical Exam Narrative Physical Exam (Free Text): 09/14/17 20:07 Patient is alert awake oriented. Chest bilateral good air entry no wheezing that is irregular and also nontender abdomen. - Medications Active Medications: Active Medications Generic Name Dose Route Start Last Admin Trade Name Freq PRN Reason Stop Dose Admin Acetaminophen 650 mg 09/13/17 12:57 09/14/17 10:12 Tylenol 325mg Tab PO 650 mg Q6 PRN Administration Fever >100.4 F Clonidine HCl 0.1 mg 09/14/17 18:00 09/14/17 18:59 Catapres PO 0.1 mg BID DENIS Administration Folic Acid 1 mg 09/15/17 10:00 Folic Acid PO DAILY DENIS Dextrose/Lactated Ringer's 1,000 mls @ 100 mls/hr 09/14/17 17:15 09/14/17 19: 02 Dextrose 5%/Lactated Ringer's IV Not Given .Q10H DENIS Lorazepam 1 mg 09/14/17 17:01 Ativan IVP Q6H PRN Agitation Morphine Sulfate 4 mg 09/13/17 11:25 09/14/17 01:57 Morphine IVP 4 mg Q4 PRN Administration Pain, moderate (4-7) Ondansetron HCl 4 mg 09/13/17 11:32 Zofran Inj IVP Q4H PRN Nausea/Vomiting Pantoprazole Sodium 40 mg 09/15/17 10:00 Protonix Ec Tab PO DAILY DENIS Thiamine HCl 100 mg 09/15/17 10:00 Vitamin B1 Tab PO DAILY DENIS - Patient Studies Lab Studies: Microbiology Studies 09/13/17 17:48 MRSA Culture (Admit) - Final Naris MRSA NOT DETECTED Lab Studies 09/14/17 09/14/17 09/14/17 Range/Units 06:22 06:22 06:22 WBC (4.8-10.8) K/uL RBC (4.40-5.90) Mil/uL Hgb (12.0-18.0) g/dL Hct (35.0-51.0) % MCV (80.0-94.0) fL MCH (27.0-31.0) pg MCHC (33.0-37.0) g/dL RDW (11.5-14.5) % Plt Count (130-400) K/uL MPV (7.2-11.7) fL Neut % (Auto) (50.0-75.0) % Lymph % (Auto) (20.0-40.0) % Greene % (Auto) (0.0-10.0) % Eos % (Auto) (0.0-4.0) % Baso % (Auto) (0.0-2.0) % Neut # (Auto) (1.8-7.0) K/uL Lymph # (Auto) (1.0-4.3) K/uL Greene # (Auto) (0.0-0.8) K/uL Eos # (Auto) (0.0-0.7) K/uL Baso # (Auto) (0.0-0.2) K/uL Differential Comment Sodium 139 (132-148) mmol/L Potassium 3.3 L (3.6-5.2) mmol/L Chloride 96 L (98-107) mmol/L Carbon Dioxide 24 (22-30) mmol/L Anion Gap 22 H (10-20) BUN 9 (9-20) mg/dL Creatinine 0.6 L (0.8-1.5) mg/dL Est GFR ( Amer) > 60 Est GFR (Non-Af Amer) > 60 Random Glucose 90 (75-110) mg/dL Calcium 8.9 (8.6-10.4) mg/dl Phosphorus 1.9 L (2.5-4.5) mg/dL Magnesium 1.7 (1.6-2.3) mg/dL Total Bilirubin 1.8 H (0.2-1.3) mg/dL AST 69 H D (17-59) U/L ALT 74 H D (21-72) U/L Alkaline Phosphatase 77 (38-126) U/L Total Protein 7.5 (6.3-8.3) g/dL Albumin 4.4 (3.5-5.0) g/dL Globulin 3.1 (2.2-3.9) gm/dL Albumin/Globulin Ratio 1.4 (1.0-2.1) Lipase 633 H (23-300) U/L Hepatitis A IgM Ab Negative (NEGATIVE) Hep Bs Antigen Negative (NEGATIVE) Hep B Core IgM Ab Negative (NEGATIVE) Hepatitis C Antibody Negative (NEGATIVE) HIV 1&2 Antibody Screen Negative (NEGATIVE) 09/14/17 Range/Units 06:22 WBC 3.8 L (4.8-10.8) K/uL RBC 4.01 L (4.40-5.90) Mil/uL Hgb 12.0 D (12.0-18.0) g/dL Hct 34.7 L (35.0-51.0) % MCV 86.4 D (80.0-94.0) fL MCH 29.9 (27.0-31.0) pg MCHC 34.5 (33.0-37.0) g/dL RDW 18.5 H (11.5-14.5) % Plt Count 88 L D (130-400) K/uL MPV 8.2 (7.2-11.7) fL Neut % (Auto) 66.6 (50.0-75.0) % Lymph % (Auto) 24.7 (20.0-40.0) % Greene % (Auto) 6.6 (0.0-10.0) % Eos % (Auto) 1.7 (0.0-4.0) % Baso % (Auto) 0.4 (0.0-2.0) % Neut # (Auto) 2.5 (1.8-7.0) K/uL Lymph # (Auto) 0.9 L (1.0-4.3) K/uL Greene # (Auto) 0.2 (0.0-0.8) K/uL Eos # (Auto) 0.1 (0.0-0.7) K/uL Baso # (Auto) 0.0 (0.0-0.2) K/uL Differential Comment Sodium (132-148) mmol/L Potassium (3.6-5.2) mmol/L Chloride (98-107) mmol/L Carbon Dioxide (22-30) mmol/L Anion Gap (10-20) BUN (9-20) mg/dL Creatinine (0.8-1.5) mg/dL Est GFR ( Amer) Est GFR (Non-Af Amer) Random Glucose (75-110) mg/dL Calcium (8.6-10.4) mg/dl Phosphorus (2.5-4.5) mg/dL Magnesium (1.6-2.3) mg/dL Total Bilirubin (0.2-1.3) mg/dL AST (17-59) U/L ALT (21-72) U/L Alkaline Phosphatase (38-126) U/L Total Protein (6.3-8.3) g/dL Albumin (3.5-5.0) g/dL Globulin (2.2-3.9) gm/dL Albumin/Globulin Ratio (1.0-2.1) Lipase (23-300) U/L Hepatitis A IgM Ab (NEGATIVE) Hep Bs Antigen (NEGATIVE) Hep B Core IgM Ab (NEGATIVE) Hepatitis C Antibody (NEGATIVE) HIV 1&2 Antibody Screen (NEGATIVE) Laboratory Results - last 24 hr 09/14/17 09/14/17 09/14/17 06:22 06:22 06:22 WBC 3.8 L RBC 4.01 L Hgb 12.0 D Hct 34.7 L MCV 86.4 D MCH 29.9 MCHC 34.5 RDW 18.5 H Plt Count 88 L D MPV 8.2 Neut % (Auto) 66.6 Lymph % (Auto) 24.7 Greene % (Auto) 6.6 Eos % (Auto) 1.7 Baso % (Auto) 0.4 Neut # (Auto) 2.5 Lymph # (Auto) 0.9 L Greene # (Auto) 0.2 Eos # (Auto) 0.1 Baso # (Auto) 0.0 Differential Comment Sodium 139 Potassium 3.3 L Chloride 96 L Carbon Dioxide 24 Anion Gap 22 H BUN 9 Creatinine 0.6 L Est GFR ( Amer) > 60 Est GFR (Non-Af Amer) > 60 Random Glucose 90 Calcium 8.9 Phosphorus 1.9 L Magnesium 1.7 Total Bilirubin 1.8 H AST 69 H D ALT 74 H D Alkaline Phosphatase 77 Total Protein 7.5 Albumin 4.4 Globulin 3.1 Albumin/Globulin Ratio 1.4 Lipase 633 H Hepatitis A IgM Ab Negative Hep Bs Antigen Negative Hep B Core IgM Ab Negative Hepatitis C Antibody Negative HIV 1&2 Antibody Screen 09/14/17 06:22 WBC RBC Hgb Hct MCV MCH MCHC RDW Plt Count MPV Neut % (Auto) Lymph % (Auto) Greene % (Auto) Eos % (Auto) Baso % (Auto) Neut # (Auto) Lymph # (Auto) Greene # (Auto) Eos # (Auto) Baso # (Auto) Differential Comment Sodium Potassium Chloride Carbon Dioxide Anion Gap BUN Creatinine Est GFR ( Amer) Est GFR (Non-Af Amer) Random Glucose Calcium Phosphorus Magnesium Total Bilirubin AST ALT Alkaline Phosphatase Total Protein Albumin Globulin Albumin/Globulin Ratio Lipase Hepatitis A IgM Ab Hep Bs Antigen Hep B Core IgM Ab Hepatitis C Antibody HIV 1&2 Antibody Screen Negative Critical Care Progress Note - Nutrition Nutrition: Nutrition Category Date Time Status Liquid Diet [DIET] Diets 09/14/17 Dinner Active Assessment/Plan (1) Pancreatitis Assessment and plan: Patient with acute alcoholic pancreatitis improving at this time. Continue the IV fluid. Advance diet. If stable transfer to floor Current Visit: Yes Status: Acute
[2017-09-15] MEDS: Morphine 4 MG/ML VIAL IVP PRN (01:55)
[2017-09-15] MEDS: Dextrose 5%/Lactated Ringer's 1,000 ML IV SCH ×2 (03:31→14:12)
[2017-09-15 06:46] LABS: BASO % 0.5 % (0.0-2.0); EOS % 1.2 % (0.0-4.0); HEMOGLOBIN 11.1 g/dL (12.0-18.0); LYMPH # 0.7 K/uL (1.0-4.3); LYMPH % 28.8 % (20.0-40.0); MEAN CELL VOLUME 87.6 fL (80.0-94.0); MEAN CORPUSCULAR HEMOGLOBIN 29.7 pg (27.0-31.0); MEAN CORPUSCULAR HGB CONC 33.9 g/dL (33.0-37.0); MEAN PLATELET VOLUME 8.4 fL (7.2-11.7); MONO # 0.2 K/uL (0.0-0.8); NEUT # 1.5 K/uL (1.8-7.0); NEUT % 61.5 % (50.0-75.0); NRBC % 0.1 % (0.0-2.0); RBC 3.75 Mil/uL (4.40-5.90); WHITE BLOOD COUNT 2.5 K/uL (4.8-10.8)
[2017-09-15 07:05] LABS: ALB/GLOB RATIO 1.2 (1.0-2.1); ALBUMIN 3.7 g/dL (3.5-5.0); ALT/SGPT 71 U/L (21-72); AST/SGOT 69 U/L (17-59); BLOOD UREA NITROGEN 6 mg/dL (9-20); CALCIUM 9.4 mg/dl (8.6-10.4); GFR AFRICAN-AMERICAN > 60; GFR NON-AFRICAN AMERICAN > 60
[2017-09-15] MEDS ORDERED: Alum-Mag Hydrox-Simethicone Susp (30 mL) PO PRN (07:54)
[2017-09-15] MEDS ORDERED: Pantoprazole 40 mg EC Tab PO SCH (10:00)
[2017-09-15] MEDS: Pantoprazole 40 mg EC Tab PO SCH ×2 (11:55→17:34)
--- NOTE | 2017-09-15 12:31 | CARD ---
APPROVED REPORT EKG Measurement Heart [id number] <Conclusion> Normal sinus rhythm Prolonged QT Abnormal ECG
[2017-09-15] MEDS ORDERED: Morphine 4 MG/ML VIAL IVP ONE (14:15)
--- NOTE | 2017-09-15 14:31 | CP.PCM.PN ---
Subjective - Date & Time of Evaluation Date of Evaluation: 09/15/17 Time of Evaluation: 09:00 - Subjective Subjective: Seen and examined complaining of abdominal pain and palpitation,nauseous and poor intake Has tremor and he is tachycardia Objective - Vital Signs/Intake and Output Vital Signs (last 24 hours): Temp Pulse Resp BP Pulse Ox 98.7 F 114 H 13 138/77 100 09/15/17 00:00 09/15/17 12:00 09/15/17 12:00 09/15/17 11:00 09/15/17 12:00 Intake and Output: 09/15/17 09/15/17 06:59 18:59 Intake Total 1860 1621 Output Total 2600 1680 Balance -740 -59 - Medications Medications: Current Medications Acetaminophen (Tylenol 325mg Tab) 650 mg PO Q6 PRN PRN Reason: Fever >100.4 F Last Admin: 09/14/17 10:12 Dose: 650 mg Al Hydrox/Mg Hydrox/Simethicone (Maalox Plus 30 Ml) 30 ml PO Q4H PRN PRN Reason: Indigestion / Heartburn Chlordiazepoxide (Librium) 25 mg PO Q8H [facility] PRN Reason: Taper Stop: 09/18/17 05:59 Last Admin: 09/15/17 14:06 Dose: Not Given Clonidine HCl (Catapres) 0.1 mg PO BID [facility] Last Admin: 09/15/17 11:00 Dose: 0.1 mg Folic Acid (Folic Acid) 1 mg PO DAILY [facility] Last Admin: 09/15/17 11:52 Dose: 1 mg Lorazepam (Ativan) 1 mg IVP Q6H PRN PRN Reason: Agitation Morphine Sulfate (Morphine) 4 mg IVP Q4 PRN PRN Reason: Pain, moderate (4-7) Last Admin: 09/15/17 01:55 Dose: 4 mg Ondansetron HCl (Zofran Inj) 4 mg IVP Q4H PRN PRN Reason: Nausea/Vomiting Pantoprazole Sodium (Protonix Ec Tab) 40 mg PO BID [facility] Last Admin: 09/15/17 11:55 Dose: 40 mg Thiamine HCl (Vitamin B1 Tab) 100 mg PO DAILY [facility] Last Admin: 09/15/17 11:51 Dose: 100 mg - Labs Labs: 09/15/17 06:34 09/15/17 06:37 PT 10.8 SECONDS (9.7-12.2) 09/13/17 09:11 INR 1.0 09/13/17 09:11 APTT 24 SECONDS (21-34) 09/13/17 09:11 - Constitutional Appears: Non-toxic - Eye Exam Eye Exam: Normal appearance Pupil Exam: NORMAL ACCOMODATION - ENT Exam ENT Exam: Mucous Membranes Moist - Respiratory Exam Respiratory Exam: Clear to Ausculation Bilateral - Cardiovascular Exam Cardiovascular Exam: REGULAR RHYTHM - GI/Abdominal Exam GI & Abdominal Exam: Soft, Normal Bowel Sounds. absent: Tenderness - Extremities Exam Extremities Exam: Full ROM - Back Exam Back Exam: NORMAL INSPECTION - Neurological Exam Neurological Exam: Awake, Oriented x3 - Psychiatric Exam Psychiatric exam: Anxious - Skin Skin Exam: Dry Assessment and Plan - Assessment and Plan (Free Text) Plan: This is a 56 year old male with a PMHx of alcoholic pancreatitis, EtOh Abuse/ Withdrawal and delerium tremens w/ audio hallucinatoins who presents with complaints of abdominal pain and associated nausea and vomiting x 3 days. He was admitted for acute pancreatitis 1. Acute Pancreatitis pain is better,lipase is improving started on full diet,continue if he tolerates CT shows uncomplicated pancreatitis,fatty liver,normal GB and ducts 2. EtoH Withdrawal CIWA, Neurochecks, Seizure precautions, Fall Precautions Zofran PRN Folic Acid, Thiamine,Ativan as needed On librium. He is anxious,has tremor and palpitation taper librium possible discharge tomorrow if he improves 3.Alcoholic Ketoacidosis Resolved 4.Prophylaxis DVT and GI
[2017-09-16] MEDS: Morphine 4 MG/ML VIAL IVP PRN ×2 (01:14→22:16)
[2017-09-16 06:49] LABS: BASO % 0.9 % (0.0-2.0); HEMOGLOBIN 10.5 g/dL (12.0-18.0); LYMPH # 0.9 K/uL (1.0-4.3); LYMPH % 49.6 % (20.0-40.0); MEAN CELL VOLUME 87.5 fL (80.0-94.0); MEAN CORPUSCULAR HEMOGLOBIN 30.2 pg (27.0-31.0); MEAN CORPUSCULAR HGB CONC 34.6 g/dL (33.0-37.0); MEAN PLATELET VOLUME 9.1 fL (7.2-11.7); MONO # 0.2 K/uL (0.0-0.8); NEUT # 0.7 K/uL (1.8-7.0); NEUT % 36.5 % (50.0-75.0); RBC 3.48 Mil/uL (4.40-5.90); RED CELL DISTRIBUTION WIDTH 18.7 % (11.5-14.5)
[2017-09-16 07:06] LABS: WHITE BLOOD COUNT 1.9 K/uL (4.8-10.8)
[2017-09-16 07:24] LABS: ALB/GLOB RATIO 1.2 (1.0-2.1); ALBUMIN 3.5 g/dL (3.5-5.0); ALT/SGPT 70 U/L (21-72); AST/SGOT 88 U/L (17-59); BLOOD UREA NITROGEN 5 mg/dL (9-20); CALCIUM 9.6 mg/dl (8.6-10.4); GFR AFRICAN-AMERICAN > 60; GFR NON-AFRICAN AMERICAN > 60
[2017-09-16] MEDS: Pantoprazole 40 mg EC Tab PO SCH ×2 (09:35→17:24)
[2017-09-16] MEDS ORDERED: Pneumococcal 23-Valent Vaccine IM ONE (10:00)
--- NOTE | 2017-09-16 15:01 | CP.PCM.PN ---
Subjective - Date & Time of Evaluation Date of Evaluation: 09/16/17 Time of Evaluation: 14:30 - Subjective Subjective: Patient has just been moved out of ICU in the morning He is doing well, less pain he says. He is attempting take food by mouth - however slowly he says Objective - Vital Signs/Intake and Output Vital Signs (last 24 hours): Temp Pulse Resp BP Pulse Ox 98.5 F 84 21 135/83 97 09/16/17 07:00 09/16/17 07:00 09/16/17 07:00 09/16/17 07:00 09/16/17 07:00 - Medications Medications: Current Medications Acetaminophen (Tylenol 325mg Tab) 650 mg PO Q6 PRN PRN Reason: Fever >100.4 F Last Admin: 09/14/17 10:12 Dose: 650 mg Al Hydrox/Mg Hydrox/Simethicone (Maalox Plus 30 Ml) 30 ml PO Q4H PRN PRN Reason: Indigestion / Heartburn Chlordiazepoxide (Librium) 25 mg PO Q12H [facility] PRN Reason: Taper Stop: 09/18/17 05:59 Last Admin: 09/16/17 05:49 Dose: 25 mg Folic Acid (Folic Acid) 1 mg PO DAILY [facility] Last Admin: 09/16/17 09:35 Dose: 1 mg Sodium Chloride (Sodium Chloride 0.9%) 1,000 mls @ 100 mls/hr IV .Q10H DENIS Lorazepam (Ativan) 1 mg IVP Q6H PRN PRN Reason: Agitation Morphine Sulfate (Morphine) 4 mg IVP Q4 PRN PRN Reason: Pain, moderate (4-7) Last Admin: 09/16/17 01:14 Dose: 4 mg Ondansetron HCl (Zofran Inj) 4 mg IVP Q4H PRN PRN Reason: Nausea/Vomiting Pantoprazole Sodium (Protonix Ec Tab) 40 mg PO BID [facility] Last Admin: 09/16/17 09:35 Dose: 40 mg Potassium Chloride (K-Dur 20 Meq Er Tab) 40 meq PO BRK [facility] Thiamine HCl (Vitamin B1 Tab) 100 mg PO DAILY [facility] Last Admin: 09/16/17 09:35 Dose: 100 mg - Labs Labs: 09/16/17 06:42 09/16/17 06:42 PT 10.8 SECONDS (9.7-12.2) 09/13/17 09:11 INR 1.0 09/13/17 09:11 APTT 24 SECONDS (21-34) 09/13/17 09:11 - Head Exam Head Exam: ATRAUMATIC, NORMAL INSPECTION, NORMOCEPHALIC - Eye Exam Eye Exam: Normal appearance - Respiratory Exam Respiratory Exam: Clear to Ausculation Bilateral, NORMAL BREATHING PATTERN - Cardiovascular Exam Cardiovascular Exam: REGULAR RHYTHM - GI/Abdominal Exam GI & Abdominal Exam: Soft, Tenderness, Normal Bowel Sounds. absent: Distended, Firm, Guarding, Rigid Additional comments: Very minor tenderness - Neurological Exam Neurological Exam: Alert, Awake, Oriented x3 Neuro motor strength exam: Left Upper Extremity: 5, Right Upper Extremity: 5, Left Lower Extremity: 5, Right Lower Extremity: 5 Additional comments: Patient is able to ambulate to the bathroom with a walking cane Very minimal fine tremors - Psychiatric Exam Psychiatric exam: Depressed, Flat Affect - Skin Skin Exam: Normal Color, Warm Assessment and Plan - Assessment and Plan (Free Text) Assessment: This is a 56 year old male with a PMHx of alcoholic pancreatitis, EtOh Abuse/ Withdrawal and delerium tremens w/ audio hallucinatoins who presents with complaints of abdominal pain and associated nausea and vomiting x 3 days. He was admitted for acute pancreatitis 1. Acute Pancreatitis 09/16: Now out of ICU. He appears stable at this time. Ambulating in room. Reports very mil tenderness abdomen. pain is better,lipase is improving started on full diet,continue if he tolerates CT shows uncomplicated pancreatitis,fatty liver,normal GB and ducts 2. EtoH Withdrawal 09/16: Continue with the alcohol detox protocol. CIWA, Neurochecks, Seizure precautions, Fall Precautions Zofran PRN Folic Acid, Thiamine,Ativan as needed On librium. He is anxious,has tremor and palpitation taper librium 3.Alcoholic Ketoacidosis Resolved 4.Prophylaxis DVT and GI
[2017-09-16] MEDS: Sodium Chloride 0.9% 1,000 ML IV SCH (15:40)
[2017-09-16 17:07] VITALS: RESP 20
[2017-09-17] MEDS: Sodium Chloride 0.9% 1,000 ML IV SCH ×2 (01:30→11:45)
[2017-09-17 07:15] LABS: MEAN CELL VOLUME 88.1 fL (80.0-94.0); MEAN CORPUSCULAR HEMOGLOBIN 29.9 pg (27.0-31.0); MEAN CORPUSCULAR HGB CONC 33.9 g/dL (33.0-37.0); MEAN PLATELET VOLUME 8.9 fL (7.2-11.7); RBC 3.34 Mil/uL (4.40-5.90); RED CELL DISTRIBUTION WIDTH 18.4 % (11.5-14.5)
[2017-09-17 07:21] LABS: WHITE BLOOD COUNT 1.6 K/uL (4.8-10.8)
[2017-09-17 07:40] LABS: LIPASE 74 U/L (23-300)
[2017-09-17 07:50] LABS: ALB/GLOB RATIO 1.2 (1.0-2.1); ALBUMIN 3.4 g/dL (3.5-5.0); ALT/SGPT 91 U/L (21-72); AST/SGOT 111 U/L (17-59); BLOOD UREA NITROGEN 7 mg/dL (9-20); CALCIUM 9.4 mg/dl (8.6-10.4); GFR AFRICAN-AMERICAN > 60; GFR NON-AFRICAN AMERICAN > 60
[2017-09-17] MEDS: Potassium Chloride 20 mEq ER Tab PO SCH (09:00)
[2017-09-17 10:20] LABS: ALB/GLOB RATIO 1.2 (1.0-2.1); ALBUMIN 3.4 g/dL (3.5-5.0); ALT/SGPT 93 U/L (21-72); AST/SGOT 115 U/L (17-59); BLOOD UREA NITROGEN 7 mg/dL (9-20); CALCIUM 9.3 mg/dl (8.6-10.4); GFR AFRICAN-AMERICAN > 60; GFR NON-AFRICAN AMERICAN > 60
[2017-09-17] MEDS: Pantoprazole 40 mg EC Tab PO SCH ×2 (11:32→17:16)
[2017-09-17] MEDS: Morphine 4 MG/ML VIAL IVP PRN (11:51)
--- NOTE | 2017-09-17 14:29 | CP.PCM.PN ---
<Cassandra Corrales - Last Filed: 09/17/17 14:45> Subjective - Date & Time of Evaluation Date of Evaluation: 09/17/17 Time of Evaluation: 07:00 - Subjective Subjective: Medicine Progress Note: Patient was seen and examined at bedside in the AM. Patient states he is a bit upset because they brought him the incorrect breakfast. Patient states he did vomit once last night after dinner. Patient states he still continue to have abdominal pain. Patient denies shortness of breath, chest pain, fever, chills, diarrhea or constipation. Objective - Vital Signs/Intake and Output Vital Signs (last 24 hours): Temp Pulse Resp BP Pulse Ox 98.2 F 82 20 158/92 H 100 09/17/17 07:49 09/17/17 07:49 09/17/17 07:49 09/17/17 07:49 09/17/17 07:49 Intake and Output: 09/17/17 09/17/17 06:59 18:59 Intake Total 2400 Balance 2400 - Medications Medications: Current Medications Acetaminophen (Tylenol 325mg Tab) 650 mg PO Q6 PRN PRN Reason: Fever >100.4 F Last Admin: 09/14/17 10:12 Dose: 650 mg Al Hydrox/Mg Hydrox/Simethicone (Maalox Plus 30 Ml) 30 ml PO Q4H PRN PRN Reason: Indigestion / Heartburn Chlordiazepoxide (Librium) 25 mg PO Q24H [facility] PRN Reason: Taper Stop: 09/18/17 05:59 Last Admin: 09/17/17 05:24 Dose: 25 mg Folic Acid (Folic Acid) 1 mg PO DAILY [facility] Last Admin: 09/17/17 11:32 Dose: 1 mg Magnesium Sulfate/Dextrose (Magnesium Sulfate 1 Gm/100 Ml D5w) 1 gm in 100 mls @ 300 mls/hr IVPB Q30M [facility] Stop: 09/17/17 15:19 Lorazepam (Ativan) 1 mg IVP Q6H PRN PRN Reason: Agitation Morphine Sulfate (Morphine) 4 mg IVP Q4 PRN PRN Reason: Pain, moderate (4-7) Last Admin: 09/17/17 11:51 Dose: 4 mg Ondansetron HCl (Zofran Inj) 4 mg IVP Q4H PRN PRN Reason: Nausea/Vomiting Last Admin: 09/17/17 11:41 Dose: 4 mg Pantoprazole Sodium (Protonix Ec Tab) 40 mg PO BID [facility] Last Admin: 09/17/17 11:32 Dose: 40 mg Potassium Chloride (K-Dur 20 Meq Er Tab) 40 meq PO BRK [facility] Last Admin: 09/17/17 09:00 Dose: 40 meq Thiamine HCl (Vitamin B1 Tab) 100 mg PO DAILY [facility] Last Admin: 09/17/17 11:32 Dose: 100 mg - Labs Labs: 09/17/17 06:58 09/17/17 06:58 PT 10.8 SECONDS (9.7-12.2) 09/13/17 09:11 INR 1.0 09/13/17 09:11 APTT 24 SECONDS (21-34) 09/13/17 09:11 - Constitutional Appears: No Acute Distress - Head Exam Head Exam: ATRAUMATIC, NORMAL INSPECTION - Eye Exam Eye Exam: EOMI, Normal appearance - ENT Exam ENT Exam: Mucous Membranes Moist - Respiratory Exam Respiratory Exam: Clear to Ausculation Bilateral, NORMAL BREATHING PATTERN - Cardiovascular Exam Cardiovascular Exam: REGULAR RHYTHM, +S1, +S2 - GI/Abdominal Exam GI & Abdominal Exam: Distended, Firm (slightly firm ), Tenderness, Normal Bowel Sounds. absent: Organomegaly - Extremities Exam Extremities Exam: Normal Inspection - Neurological Exam Neurological Exam: Alert, Awake, Oriented x3 - Psychiatric Exam Psychiatric exam: Agitated - Skin Skin Exam: Normal Color Assessment and Plan - Assessment and Plan (Free Text) Assessment: 1.) Acute Pancreatitis - CT of Abdomen/Pelvis (09/13/17): Findings consistent with acute uncomplicated pancreatitis. Few coarse pancreatic calcifications suggestive of chronic pancreatitis. Fatty infiltration of the liver. Minimal splenomegaly. - Patient was transferred out of ICU on 09/16/17 - Patient continue to report mild abdominal tenderness - Patient continues on full diet - Medications: * Morphine 4mg IV q4 prn for pain * Tylenol 650mg po q6 for pain/fever * Zofran 4mg IV q4PRN 2.) EtoH Withdrawal - Psych Consult: Dr. Nino --> help appreciated - CIWA, Neurochecks, Seizure precautions, Fall Precautions - Medications: * Folic Acid 1mg po daily * Thiamine 100mg po daily * Ativan 1mg q6prn * Librium 25mg po q25h - Discussed alcohol cessation with patient - patient states he has been drinking since he was in high school. Patient states he has roommates who drink and it is difficult for him to stop. 3.) Thrombocytopenia - Most likely secondary to Alcohol abuse - Platelets 65 - Continue to Monitor 4.) Leukopenia - Most likely secondary to alcohol abuse vs. infectious - f/u HIV 1&2 5.) Anemia - 03/03.4 - Most likely secondary to Alcohol abuse - Continue to monitor 6.) Electrolyte Depletion - K 3.5 - repleted - Mag 1.4 - repleted 7.) .Alcoholic Ketoacidosis Resolved 8.) Prophylaxis - Protonix 40mg po bid - Maalox 30ml q4prn - Contraindication for DVT secondary to Thrombocytopenia - SCDs - Physical Therapy eval and treat Case discussed with Dr. Ruthie Corrales PGY-1 <Lloyd Hendricks - Last Filed: 09/17/17 15:36> Objective - Vital Signs/Intake and Output Vital Signs (last 24 hours): Temp Pulse Resp BP Pulse Ox 98.2 F 82 20 158/92 H 100 09/17/17 07:49 09/17/17 07:49 09/17/17 07:49 09/17/17 07:49 09/17/17 07:49 Intake and Output: 09/17/17 09/17/17 06:59 18:59 Intake Total 2400 1400 Balance 2400 1400 - Medications Medications: Current Medications Acetaminophen (Tylenol 325mg Tab) 650 mg PO Q6 PRN PRN Reason: Fever >100.4 F Last Admin: 09/14/17 10:12 Dose: 650 mg Acetaminophen (Tylenol 325mg Tab) 650 mg PO Q6 PRN PRN Reason: Pain, Mild (1-3) Al Hydrox/Mg Hydrox/Simethicone (Maalox Plus 30 Ml) 30 ml PO Q4H PRN PRN Reason: Indigestion / Heartburn Chlordiazepoxide (Librium) 25 mg PO Q24H [facility] PRN Reason: Taper Stop: 09/18/17 05:59 Last Admin: 09/17/17 05:24 Dose: 25 mg Folic Acid (Folic Acid) 1 mg PO DAILY [facility] Last Admin: 09/17/17 11:32 Dose: 1 mg Lorazepam (Ativan) 1 mg IVP Q6H PRN PRN Reason: Agitation Morphine Sulfate (Morphine) 4 mg IVP Q4 PRN PRN Reason: Pain, moderate (4-7) Last Admin: 09/17/17 11:51 Dose: 4 mg Ondansetron HCl (Zofran Inj) 4 mg IVP Q4H PRN PRN Reason: Nausea/Vomiting Last Admin: 09/17/17 11:41 Dose: 4 mg Pantoprazole Sodium (Protonix Ec Tab) 40 mg PO BID [facility] Last Admin: 09/17/17 11:32 Dose: 40 mg Potassium Chloride (K-Dur 20 Meq Er Tab) 40 meq PO BRK [facility] Last Admin: 09/17/17 09:00 Dose: 40 meq Thiamine HCl (Vitamin B1 Tab) 100 mg PO DAILY [facility] Last Admin: 09/17/17 11:32 Dose: 100 mg - Labs Labs: 09/17/17 06:58 09/17/17 06:58 PT 10.8 SECONDS (9.7-12.2) 09/13/17 09:11 INR 1.0 09/13/17 09:11 APTT 24 SECONDS (21-34) 09/13/17 09:11 Attending/Attestation - Attestation I have personally seen and examined this patient.: Yes I have fully participated in the care of the patient.: Yes I have reviewed all pertinent clinical information, including history, physical exam and plan: Yes Notes (Text): 09/17/17 15:33 Medical attending: Patient was seen and examined by me. Agree with the above note by the resident The patient was not in any acute distress Of note was the low WBC, HIV is negative The patient per our discussion drinks a lot - he explains he just started eating recently again. Normally he has a poor appettie whenever he drinks alcohol Possible will discharge patient tommorow. thank you Lloyd Hendricks
[2017-09-17] MEDS: Magnesium Sulfate 1 gm in D5W 1 GM/100 ML BAG IVPB SCH ×2 (14:32→14:58)
[2017-09-18] MEDS: Morphine 4 MG/ML VIAL IVP PRN ×2 (00:04→12:29)
[2017-09-18 07:42] VITALS: BP 130/83; PULSE 88; TEMP 98.1; O2SAT 95
[2017-09-18 07:48] LABS: BASO % 0.8 % (0.0-2.0); EOS # 0.1 K/uL (0.0-0.7); EOS % 4.5 % (0.0-4.0); HEMOGLOBIN 11.1 g/dL (12.0-18.0); LYMPH % 43.3 % (20.0-40.0); MEAN CELL VOLUME 88.3 fL (80.0-94.0); MEAN CORPUSCULAR HEMOGLOBIN 30.2 pg (27.0-31.0); MEAN CORPUSCULAR HGB CONC 34.2 g/dL (33.0-37.0); MEAN PLATELET VOLUME 9.5 fL (7.2-11.7); MONO # 0.3 K/uL (0.0-0.8); MONO % 15.6 % (0.0-10.0); NEUT # 0.8 K/uL (1.8-7.0); NEUT % 35.8 % (50.0-75.0); NRBC % 0.1 % (0.0-2.0); RBC 3.66 Mil/uL (4.40-5.90); RED CELL DISTRIBUTION WIDTH 19.4 % (11.5-14.5); WHITE BLOOD COUNT 2.2 K/uL (4.8-10.8)
[2017-09-18] MEDS: Potassium Chloride 20 mEq ER Tab PO SCH (08:02)
[2017-09-18 08:26] LABS: ALB/GLOB RATIO 1.3 (1.0-2.1); ALBUMIN 3.9 g/dL (3.5-5.0); ALT/SGPT 123 U/L (21-72); AST/SGOT 146 U/L (17-59); BLOOD UREA NITROGEN 7 mg/dL (9-20); CALCIUM 9.4 mg/dl (8.6-10.4); GFR AFRICAN-AMERICAN > 60; GFR NON-AFRICAN AMERICAN > 60
[2017-09-18] MEDS: Pantoprazole 40 mg EC Tab PO SCH (09:58)
--- NOTE | 2017-09-18 10:28 | CP.PCM.DIS ---
<Maurice Corralessssumeet Nguyen - Last Filed: 09/18/17 17:19> Provider - Provider Date of Admission: 09/13/17 09:11 Attending physician: Lloyd Hendricks DO Time Spent in preparation of Discharge (in minutes): 40 Hospital Course - Lab Results Lab Results: Micro Results 09/15/17 15:21 Naris MRSA Culture (Admit) - Final MRSA NOT DETECTED 09/13/17 17:48 Naris MRSA Culture (Admit) - Final MRSA NOT DETECTED Most Recent Lab Values WBC 2.2 K/uL (4.8-10.8) L 09/18/17 07:34 RBC 3.66 Mil/uL (4.40-5.90) L 09/18/17 07:34 Hgb 11.1 g/dL (12.0-18.0) L 09/18/17 07:34 Hct 32.3 % (35.0-51.0) L 09/18/17 07:34 MCV 88.3 fL (80.0-94.0) 09/18/17 07:34 MCH 30.2 pg (27.0-31.0) 09/18/17 07:34 MCHC 34.2 g/dL (33.0-37.0) 09/18/17 07:34 RDW 19.4 % (11.5-14.5) H 09/18/17 07:34 Plt Count 97 K/uL (130-400) L D 09/18/17 07:34 MPV 9.5 fL (7.2-11.7) 09/18/17 07:34 Neut % (Auto) 35.8 % (50.0-75.0) L 09/18/17 07:34 Lymph % (Auto) 43.3 % (20.0-40.0) H 09/18/17 07:34 Burnet % (Auto) 15.6 % (0.0-10.0) H 09/18/17 07:34 Eos % (Auto) 4.5 % (0.0-4.0) H 09/18/17 07:34 Baso % (Auto) 0.8 % (0.0-2.0) 09/18/17 07:34 Neut # (Auto) 0.8 K/uL (1.8-7.0) L 09/18/17 07:34 Lymph # (Auto) 1.0 K/uL (1.0-4.3) 09/18/17 07:34 Burnet # (Auto) 0.3 K/uL (0.0-0.8) 09/18/17 07:34 Eos # (Auto) 0.1 K/uL (0.0-0.7) 09/18/17 07:34 Baso # (Auto) 0.0 K/uL (0.0-0.2) 09/18/17 07:34 Neutrophils % (Manual) 85 % (50-75) H 09/13/17 07:39 Lymphocytes % (Manual) 8 % (20-40) L 09/13/17 07:39 Monocytes % (Manual) 7 % (0-10) 09/13/17 07:39 Differential Comment 09/17/17 06:58 Platelet Estimate Normal (NORMAL) 09/13/17 07:39 Smear Path Review 09/17/17 06:58 PT 10.8 SECONDS (9.7-12.2) 09/13/17 09:11 INR 1.0 09/13/17 09:11 APTT 24 SECONDS (21-34) 09/13/17 09:11 Puncture Site Lb 09/13/17 10:05 pCO2 26 mm/Hg (35-45) L 09/13/17 10:05 pO2 102 mm/Hg (80-100) H 09/13/17 10:05 HCO3 13.4 mmol/L (21-28) L 09/13/17 10:05 ABG pH 7.24 (7.35-7.45) L 09/13/17 10:05 ABG Total CO2 11.9 mmol/L (22-28) L 09/13/17 10:05 ABG O2 Saturation 99.3 % (95-98) H 09/13/17 10:05 ABG Base Excess -14.8 mmol/L (-2.0-3.0) L 09/13/17 10:05 ABG Hemoglobin 10.3 g/dL (11.7-17.4) L 09/13/17 10:05 ABG Carboxyhemoglobin 2.1 % (0.5-1.5) H 09/13/17 10:05 POC ABG HHb (Measured) 0.7 % (0.0-5.0) 09/13/17 10:05 ABG Methemoglobin 1.8 % (0.0-3.0) 09/13/17 10:05 Ravin Test Na 09/13/17 10:05 VBG pH 7.23 (7.32-7.43) L 09/13/17 09:18 VBG pCO2 37 mmHg (40-60) L 09/13/17 09:18 VBG HCO3 15.1 mmol/L 09/13/17 09:18 VBG Total CO2 16.6 mmol/L (22-28) L 09/13/17 09:18 VBG O2 Sat (Calc) 72.7 % (40-65) H 09/13/17:18 VBG Base Excess -11.3 mmol/L (0.0-2.0) L 09/13/17 09:18 VBG Potassium 4.3 mmol/L (3.6-5.2) 09/13/17 09:18 A-a O2 Difference 15.0 mm/Hg 09/13/17 10:05 Respiratory Index 0.1 09/13/17 10:05 Hgb O2 Saturation 95.4 % (95.0-98.0) 09/13/17 10:05 Sodium 135.0 mmol/l (132-148) 09/13/17 09:18 Chloride 100.0 mmol/L (98-107) 09/13/17 09:18 Glucose 99 mg/dl (75-110) 09/13/17 09:18 Lactate 0.9 mmol/L (0.7-2.1) 09/13/17 09:18 FiO2 21.0 % 09/13/17 10:05 Sodium 141 mmol/L (132-148) 09/18/17 07:34 Potassium 4.0 mmol/L (3.6-5.2) 09/18/17 07:34 Chloride 100 mmol/L (98-107) 09/18/17 07:34 Carbon Dioxide 29 mmol/L (22-30) 09/18/17 07:34 Anion Gap 16 (10-20) 09/18/17 07:34 BUN 7 mg/dL (9-20) L 09/18/17 07:34 Creatinine 0.8 mg/dL (0.8-1.5) 09/18/17 07:34 Est GFR ( Amer) > 60 09/18/17 07:34 Est GFR (Non-Af Amer) > 60 09/18/17 07:34 Random Glucose 111 mg/dL (75-110) H 09/18/17 07:34 Calcium 9.4 mg/dl (8.6-10.4) 09/18/17 07:34 Phosphorus 3.6 mg/dL (2.5-4.5) 09/18/17 07:34 Magnesium 1.9 mg/dL (1.6-2.3) 09/18/17 07:34 Total Bilirubin 0.5 mg/dL (0.2-1.3) 09/18/17 07:34 AST 146 U/L (17-59) H D 09/18/17 07:34 ALT 123 U/L (21-72) H D 09/18/17 07:34 Alkaline Phosphatase 82 U/L (38-126) 09/18/17 07:34 Lactate Dehydrogenase 505 U/L (313-618) 09/13/17 09:27 Total Protein 6.9 g/dL (6.3-8.3) 09/18/17 07:34 Albumin 3.9 g/dL (3.5-5.0) 09/18/17 07:34 Globulin 3.0 gm/dL (2.2-3.9) 09/18/17 07:34 Albumin/Globulin Ratio 1.3 (1.0-2.1) 09/18/17 07:34 Amylase 393 U/L (30-110) H 09/13/17 07:39 Lipase 74 U/L (23-300) 09/17/17 06:58 Venous Blood Potassium 4.3 mmol/L (3.6-5.2) 09/13/17 09:18 Urine Color Sayda (YELLOW) 09/13/17 07:39 Urine Clarity Hazy (Clear) 09/13/17 07:39 Urine pH 5.0 (5.0-8.0) 09/13/17 07:39 Ur Specific Burt 1.027 (1.003-1.030) 09/13/17 07:39 Urine Protein 3+ mg/dL (NEGATIVE) H 09/13/17 07:39 Urine Glucose (UA) Normal mg/dL (Normal) 09/13/17 07:39 Urine Ketones 2+ mg/dL (NEGATIVE) H 09/13/17 07:39 Urine Blood 2+ (NEGATIVE) H 09/13/17 07:39 Urine Nitrate Negative (NEGATIVE) 09/13/17 07:39 Urine Bilirubin 1+ (NEGATIVE) H 09/13/17 07:39 Urine Urobilinogen 4.0 mg/dL (0.2-1.0) 09/13/17 07:39 Ur Leukocyte Esterase Neg Bryon/uL (Negative) 09/13/17 07:39 Urine WBC (Auto) 20 /hpf (0-5) H 09/13/17 07:39 Urine RBC (Auto) 31 /hpf (0-3) H 09/13/17 07:39 Ur Squamous Epith Cells 1 /hpf (0-5) 09/13/17 07:39 Urine Bacteria Occ (<OCC) H 09/13/17 07:39 Hyaline Casts 11-20 /lpf (0-2) H 09/13/17 07:39 WBC Casts 7 /lpf (0-1) 09/13/17 07:39 Urine Opiates Screen Negative (NEGATIVE) 09/13/17 07:39 Urine Methadone Screen Negative (NEGATIVE) 09/13/17 07:39 Ur Barbiturates Screen Negative (NEGATIVE) 09/13/17 07:39 Ur Phencyclidine Scrn Negative (NEGATIVE) 09/13/17 07:39 Ur Amphetamines Screen Negative (NEGATIVE) 09/13/17 07:39 U Benzodiazepines Scrn Negative (NEGATIVE) 09/13/17 07:39 U Oth Cocaine Metabols Negative (NEGATIVE) 09/13/17 07:39 U Cannabinoids Screen Negative (NEGATIVE) 09/13/17 07:39 Alcohol, Quantitative < 10 mg/dl (0-10) 09/13/17 07:39 Hepatitis A IgM Ab Negative (NEGATIVE) 09/14/17 06:22 Hep Bs Antigen Negative (NEGATIVE) 09/14/17 06:22 Hep B Core IgM Ab Negative (NEGATIVE) 09/14/17 06:22 Hepatitis C Antibody Negative (NEGATIVE) 09/14/17 06:22 HIV 1&2 Antibody Screen Negative (NEGATIVE) 09/14/17 06:22 - Hospital Course Hospital Course: This Patient is a 56 year old male with a PMHx of alcoholic pancreatitis, EtOh Abuse/Withdrawal and delerium tremens w/ audio hallucinatoins who presents with complaints of abdominal pain and associated nausea and vomiting x 3 days. Patient rates the abdominal pain a 10/10, describes it as sharp and states that it radiates to his mid back. Patient states he was drinking a bottle of vodka daily for 4 days and stopped 3 days ago. He has not had anything to eat for 7 days. He denies using any modalities to treat his pain. PMHx: As stated above PSHx: Denies Allergies: Denies Social Hx: EtOH ABuse, Denies tobacco and illicit drug use. Unemployed and lives in [place]. Hos: was hospitilized in [facility] for EtOH withdrawal and delerium tremens FamHx: Non-Contributory Meds: Reviewed Hospital Course: Patient was admitted on 09/13/17 to the ICU for acute pancreatitis secondary to alcohol abuse and alcoholic ketoacidosis. Patient was on IV fluids with sodium bicarb, made npo and morphine for pain. Patient was transferred out of ICU on . Patient was then continued IV fluids, zofran and morphine for pain. Psychiatry Dr. Lehman was also consulted upon admission for alcohol withdrawal. Patient was placed on CIWA, neurochecks, seizure precautions, fall precautions. Patient was also placed on folic acid, thiamine and multivitamin. Patient was placed on a Librium and Ativan detox. During this admission patient was also found to be pancytopenic secondary to alcohol abuse. Prior to admission patient was seen and examined at bedside in the AM. Patient denies shortness of breath, chest pain, fever, chills, diarrhea or constipation. Discussed the importance of alcohol cessation. Images: - CT of Abdomen/Pelvis (09/13/17): Findings consistent with acute uncomplicated pancreatitis. Few coarse pancreatic calcifications suggestive of chronic pancreatitis. Fatty infiltration of the liver. Minimal splenomegaly. Patient to be discharged home after lunch. Patient to follow up with PMD Dr. Langston in 1-2 weeks. Please attend AA meetings for alcohol cessation: [facility] [address] [address] Please return to the emergency room if symptoms return or worsen. This is a summary of the patient's hospitalization, please review EMR for further details. Discharge Exam - Head Exam Head Exam: ATRAUMATIC, NORMAL INSPECTION - Eye Exam Eye Exam: EOMI, Normal appearance - ENT Exam ENT Exam: Mucous Membranes Moist - Respiratory Exam Respiratory Exam: Clear to PA & Lateral, NORMAL BREATHING PATTERN - Cardiovascular Exam Cardiovascular Exam: REGULAR RHYTHM, +S1, +S2 - GI/Abdominal Exam GI & Abdominal Exam: Normal Bowel Sounds, Soft. absent: Tenderness - Extremities Exam Extremities exam: normal inspection - Neurological Exam Neurological exam: Alert, Oriented x3 - Psychiatric Exam Psychiatric exam: Normal Affect - Skin Skin Exam: Normal Color Discharge Plan - Follow Up Plan Condition: STABLE Disposition: HOME/ ROUTINE Instructions: Pancreatitis (DC) Additional Instructions: Patient to be discharged home after lunch. Patient to follow up with PMD Dr. Langston in 1-2 weeks. Please attend AA meetings for alcohol cessation: [facility] [address] [address] Please return to the emergency room if symptoms return or worsen. Referrals: Pancho Guerrier MD [Medical Doctor] - <Lloyd Hendricks - Last Filed: 09/18/17 18:21> Provider - Provider Date of Admission: 09/13/17 09:11 Attending physician: Lloyd Hendricks, Hospital Course - Lab Results Lab Results: Micro Results 09/15/17 15:21 Naris MRSA Culture (Admit) - Final MRSA NOT DETECTED 09/13/17 17:48 Naris MRSA Culture (Admit) - Final MRSA NOT DETECTED Most Recent Lab Values WBC 2.2 K/uL (4.8-10.8) L 09/18/17 07:34 RBC 3.66 Mil/uL (4.40-5.90) L 09/18/17 07:34 Hgb 11.1 g/dL (12.0-18.0) L 09/18/17 07:34 Hct 32.3 % (35.0-51.0) L 09/18/17 07:34 MCV 88.3 fL (80.0-94.0) 09/18/17 07:34 MCH 30.2 pg (27.0-31.0) 09/18/17 07:34 MCHC 34.2 g/dL (33.0-37.0) 09/18/17 07:34 RDW 19.4 % (11.5-14.5) H 09/18/17 07:34 Plt Count 97 K/uL (130-400) L D 09/18/17 07:34 MPV 9.5 fL (7.2-11.7) 09/18/17 07:34 Neut % (Auto) 35.8 % (50.0-75.0) L 09/18/17 07:34 Lymph % (Auto) 43.3 % (20.0-40.0) H 09/18/17 07:34 Burnet % (Auto) 15.6 % (0.0-10.0) H 09/18/17 07:34 Eos % (Auto) 4.5 % (0.0-4.0) H 09/18/17 07:34 Baso % (Auto) 0.8 % (0.0-2.0) 09/18/17 07:34 Neut # (Auto) 0.8 K/uL (1.8-7.0) L 09/18/17 07:34 Lymph # (Auto) 1.0 K/uL (1.0-4.3) 09/18/17 07:34 Burnet # (Auto) 0.3 K/uL (0.0-0.8) 09/18/17 07:34 Eos # (Auto) 0.1 K/uL (0.0-0.7) 09/18/17 07:34 Baso # (Auto) 0.0 K/uL (0.0-0.2) 09/18/17 07:34 Neutrophils % (Manual) 85 % (50-75) H 09/13/17 07:39 Lymphocytes % (Manual) 8 % (20-40) L 09/13/17 07:39 Monocytes % (Manual) 7 % (0-10) 09/13/17 07:39 Differential Comment 09/17/17 06:58 Platelet Estimate Normal (NORMAL) 09/13/17 07:39 Smear Path Review 09/17/17 06:58 PT 10.8 SECONDS (9.7-12.2) 09/13/17 09:11 INR 1.0 09/13/17 09:11 APTT 24 SECONDS (21-34) 09/13/17 09:11 Puncture Site Lb 09/13/17 10:05 pCO2 26 mm/Hg (35-45) L 09/13/17 10:05 pO2 102 mm/Hg (80-100) H 09/13/17 10:05 HCO3 13.4 mmol/L (21-28) L 09/13/17 10:05 ABG pH 7.24 (7.35-7.45) L 09/13/17 10:05 ABG Total CO2 11.9 mmol/L (22-28) L 09/13/17 10:05 ABG O2 Saturation 99.3 % (95-98) H 09/13/17 10:05 ABG Base Excess -14.8 mmol/L (-2.0-3.0) L 09/13/17 10:05 ABG Hemoglobin 10.3 g/dL (11.7-17.4) L 09/13/17 10:05 ABG Carboxyhemoglobin 2.1 % (0.5-1.5) H 09/13/17 10:05 POC ABG HHb (Measured) 0.7 % (0.0-5.0) 09/13/17 10:05 ABG Methemoglobin 1.8 % (0.0-3.0) 09/13/17 10:05 Ravin Test Na 09/13/17 10:05 VBG pH 7.23 (7.32-7.43) L 09/13/17 09:18 VBG pCO2 37 mmHg (40-60) L 09/13/17 09:18 VBG HCO3 15.1 mmol/L 09/13/17 09:18 VBG Total CO2 16.6 mmol/L (22-28) L 09/13/17 09:18 VBG O2 Sat (Calc) 72.7 % (40-65) H 09/13/17:18 VBG Base Excess -11.3 mmol/L (0.0-2.0) L 09/13/17:18 VBG Potassium 4.3 mmol/L (3.6-5.2) 09/13/17 09:18 A-a O2 Difference 15.0 mm/Hg 09/13/17 10:05 Respiratory Index 0.1 09/13/17 10:05 Hgb O2 Saturation 95.4 % (95.0-98.0) 09/13/17 10:05 Sodium 135.0 mmol/l (132-148) 09/13/17 09:18 Chloride 100.0 mmol/L (98-107) 09/13/17 09:18 Glucose 99 mg/dl (75-110) 09/13/17 09:18 Lactate 0.9 mmol/L (0.7-2.1) 09/13/17 09:18 FiO2 21.0 % 09/13/17 10:05 Sodium 141 mmol/L (132-148) 09/18/17 07:34 Potassium 4.0 mmol/L (3.6-5.2) 09/18/17 07:34 Chloride 100 mmol/L (98-107) 09/18/17 07:34 Carbon Dioxide 29 mmol/L (22-30) 09/18/17 07:34 Anion Gap 16 (10-20) 09/18/17 07:34 BUN 7 mg/dL (9-20) L 09/18/17 07:34 Creatinine 0.8 mg/dL (0.8-1.5) 09/18/17 07:34 Est GFR ( Amer) > 60 09/18/17 07:34 Est GFR (Non-Af Amer) > 60 09/18/17 07:34 Random Glucose 111 mg/dL (75-110) H 09/18/17 07:34 Calcium 9.4 mg/dl (8.6-10.4) 09/18/17 07:34 Phosphorus 3.6 mg/dL (2.5-4.5) 09/18/17 07:34 Magnesium 1.9 mg/dL (1.6-2.3) 09/18/17 07:34 Total Bilirubin 0.5 mg/dL (0.2-1.3) 09/18/17 07:34 AST 146 U/L (17-59) H D 09/18/17 07:34 ALT 123 U/L (21-72) H D 09/18/17 07:34 Alkaline Phosphatase 82 U/L (38-126) 09/18/17 07:34 Lactate Dehydrogenase 505 U/L (313-618) 09/13/17 09:27 Total Protein 6.9 g/dL (6.3-8.3) 09/18/17 07:34 Albumin 3.9 g/dL (3.5-5.0) 09/18/17 07:34 Globulin 3.0 gm/dL (2.2-3.9) 09/18/17 07:34 Albumin/Globulin Ratio 1.3 (1.0-2.1) 09/18/17 07:34 Amylase 393 U/L (30-110) H 09/13/17 07:39 Lipase 74 U/L (23-300) 09/17/17 06:58 Venous Blood Potassium 4.3 mmol/L (3.6-5.2) 09/13/17 09:18 Urine Color Sayda (YELLOW) 09/13/17 07:39 Urine Clarity Hazy (Clear) 09/13/17 07:39 Urine pH 5.0 (5.0-8.0) 09/13/17 07:39 Ur Specific Burt 1.027 (1.003-1.030) 09/13/17 07:39 Urine Protein 3+ mg/dL (NEGATIVE) H 09/13/17 07:39 Urine Glucose (UA) Normal mg/dL (Normal) 09/13/17 07:39 Urine Ketones 2+ mg/dL (NEGATIVE) H 09/13/17 07:39 Urine Blood 2+ (NEGATIVE) H 09/13/17 07:39 Urine Nitrate Negative (NEGATIVE) 09/13/17 07:39 Urine Bilirubin 1+ (NEGATIVE) H 09/13/17 07:39 Urine Urobilinogen 4.0 mg/dL (0.2-1.0) 09/13/17 07:39 Ur Leukocyte Esterase Neg Bryon/uL (Negative) 09/13/17 07:39 Urine WBC (Auto) 20 /hpf (0-5) H 09/13/17 07:39 Urine RBC (Auto) 31 /hpf (0-3) H 09/13/17 07:39 Ur Squamous Epith Cells 1 /hpf (0-5) 09/13/17 07:39 Urine Bacteria Occ (<OCC) H 09/13/17 07:39 Hyaline Casts 11-20 /lpf (0-2) H 09/13/17 07:39 WBC Casts 7 /lpf (0-1) 09/13/17 07:39 Urine Opiates Screen Negative (NEGATIVE) 09/13/17 07:39 Urine Methadone Screen Negative (NEGATIVE) 09/13/17 07:39 Ur Barbiturates Screen Negative (NEGATIVE) 09/13/17 07:39 Ur Phencyclidine Scrn Negative (NEGATIVE) 09/13/17 07:39 Ur Amphetamines Screen Negative (NEGATIVE) 09/13/17 07:39 U Benzodiazepines Scrn Negative (NEGATIVE) 09/13/17 07:39 U Oth Cocaine Metabols Negative (NEGATIVE) 09/13/17 07:39 U Cannabinoids Screen Negative (NEGATIVE) 09/13/17 07:39 Alcohol, Quantitative < 10 mg/dl (0-10) 09/13/17 07:39 Hepatitis A IgM Ab Negative (NEGATIVE) 09/14/17 06:22 Hep Bs Antigen Negative (NEGATIVE) 09/14/17 06:22 Hep B Core IgM Ab Negative (NEGATIVE) 09/14/17 06:22 Hepatitis C Antibody Negative (NEGATIVE) 09/14/17 06:22 HIV 1&2 Antibody Screen Negative (NEGATIVE) 09/18/17 11:52 Attending/Attestation - Attestation I have personally seen and examined this patient.: Yes I have fully participated in the care of the patient.: Yes I have reviewed all pertinent clinical information, including history, physical exam and plan: Yes Notes (Text): 09/18/17 18:17 Medical attending: Patient was seen and examined by me. Agree with the above note by the resident The patient was not in any acute distress when we saw and examined him. We had a discussion with garcia to him drinking alcohol. He explains his problem is he lives in a house hold with others who drink heavily We also discussed his pancytopenia as well - the result of him drinking continuously and not having a good appettie. He drinks alchol more than he eats food. Advised the patient that if he continues to drink there will be a lot of harmful affects He says he understands and will try to change his lifestyle/behavior thank you Lloyd Hendricks
== END 2017-09-18 16:40 | disposition home or self-care (01) | DRG 204 ==
LOC: C.ER 06:33 → C.3T 09:11 → C.9E 09:46 → C.9I 10:06 → C.3T 09-15 14:24
PROVIDERS: ADMIT Hospitalist; ATTEND Hospitalist
DX: K85.90 Acute pancreatitis without necrosis or infection, unspecified (principal); F10.239 Alcohol dependence with withdrawal, unspecified; F10.231 Alcohol dependence with withdrawal delirium; D61.818 Other pancytopenia; E87.2 Acidosis; F32.9 Major depressive disorder, single episode, unspecified; K76.0 Fatty (change of) liver, not elsewhere classified; K85.20 Alcohol induced acute pancreatitis without necrosis or infection; K86.89 Other specified diseases of pancreas; F41.9 Anxiety disorder, unspecified; R03.0 Elevated blood-pressure reading, without diagnosis of hypertension